=== PATIENT | male | born 1955 | race African-American/Black ===

== ENCOUNTER 2022-05-24 16:09 | Inpatient (IN) ==
[2022-05-24 21:42] VITALS: BMI 35.5
[2022-05-24] MEDS ORDERED: NovoLIN R (or HumuLIN R) SC PRN (21:58)
--- NOTE | 2022-05-24 22:49 | EKG ---
Test Reason : Prior to surgery Blood Pressure : */* mmHG Vent. Rate : 93 BPM Atrial Rate : 93 BPM P-R Int : 174 ms QRS Dur : 76 ms QT Int : 322 ms P-R-T Axes : 34 -28 69 degrees QTc Int : 400 ms Normal sinus rhythm Possible Left atrial enlargement Left ventricular hypertrophy with repolarization abnormality ( R in aVL ) Inferior infarct , age undetermined Abnormal ECG No previous ECGs available Confirmed by Rahul Doss ([id number]) on 05/25/2022 8:08:45 AM Referred By: Confirmed By: Rahul Doss
[2022-05-24 22:51] LABS: BASOPHILS # (AUTO) 0.1 X10^3/uL (0.0-0.1); BASOPHILS % (AUTO) 1.5 % (0.2-1.0); EOSINOPHILS # (AUTO) 0.8 x10^3/uL (0.0-0.2); EOSINOPHILS % (AUTO) 8.2 % (0.9-2.9); HEMATOCRIT 34.9 % (42.0-54.0); HEMOGLOBIN 11.7 g/dL (13.5-18.0); LYMPHOCYTES % (AUTO) 19.7 % (21.0-51.0); MEAN CORPUSCULAR HEMOGLOBIN 29.3 pg (27.0-34.0); MEAN CORPUSCULAR HGB CONC 33.7 g/dL (33.0-35.0); MEAN CORPUSCULAR VOLUME 87.1 fL (80.0-100.0); MEAN PLATELET VOLUME 7.9 fL (7.4-11.0); MONOCYTES # (AUTO) 1.3 x10^3/uL (0.3-0.8); MONOCYTES % (AUTO) 12.9 % (0.0-13.0); NEUTROPHILS # (AUTO) 5.8 x10^3/uL (2.2-4.8); NEUTROPHILS % (AUTO) 57.7 % (42.0-75.0); RED CELL DISTRIBUTION WIDTH 16.2 % (11.6-16.5)
[2022-05-24 22:55] LABS: INR 0.97 (0.8-1.3)
[2022-05-24 23:01] LABS: ALANINE AMINOTRANSFERASE 21 Units/L (12-78); ALKALINE PHOSPHATASE 122 Units/L (46-116); ASPARTATE AMINO TRANSFERASE 18 Units/L (15-37); BLOOD UREA NITROGEN 40 mg/dL (7-18); CALCIUM 8.8 mg/dL (8.5-10.1); CHLORIDE 107 mmol/L (98-107); COR CA(FOR HYPOALB) 9.6 mg/dL (8.5-10.1); SODIUM 143 mmol/L (136-145); TOTAL PROTEIN 7.2 g/dL (6.4-8.2); eGFR NON BLACK RACES 50 (>60)
[2022-05-24] MEDS: LR 1,000 ML IV 1,000 ML IV SCH (23:10)
[2022-05-25] MEDS: PERCOCET TAB 5/325 MG PO PRN ×2 (02:19→20:38)
[2022-05-25] MEDS: NEURONTIN CAP 300 MG PO SCH ×3 (05:56→21:17)
[2022-05-25] MEDS: ATIVAN TAB 1 MG PO SCH ×3 (05:56→21:17)
--- NOTE | 2022-05-25 07:49 | RAD ---
HISTORYPreop left legSTUDYPortable AP chestCOMPARISONReport only September 05, 2019FINDINGSHeart size is upper-normal with clear lungs and pleural spaces.IMPRESSIONThere is no evidence for pneumonia, atelectasis or pulmonary edema.Electronically signed by: JESSY PARKER (May 25, 2022 07:48:58)
--- NOTE | 2022-05-25 10:13 | DR.UPDATE ---
H&P UPDATE Review Yes Any changes to H&P?: No
--- NOTE | 2022-05-25 10:20 | RAD ---
HISTORYLine placementSTUDYAP chestCOMPARISONEarlier todayFINDINGSThere is a new left subclavian line present with the tip in the expected level of the SVC. There is no evidence for post procedural pleural fluid or pneumothorax.IMPRESSIONNew line position as described.Electronically signed by: JESSY PARKER (May 25, 2022 10:18:44)
[2022-05-25] MEDS: LIPITOR TAB 80 MG PO SCH (12:14)
[2022-05-25] MEDS: LYRICA CAP 75 mg PO SCH ×2 (12:14→20:37)
[2022-05-25] MEDS: ASPIRIN EC 81 MG PO SCH (12:14)
[2022-05-25] MEDS: PROTONIX TAB 40 MG PO SCH (12:15)
[2022-05-25] MEDS: TOPROL XL PO SCH (12:15)
--- NOTE | 2022-05-25 13:01 | CT ---
HISTORYSEVERELY ISCHEMIC LOWER EXTREMITIES.STUDYCTA AORTA WITH RUNOFFCOMPARISONNoneTECHNIQUEMultiple CT axial images of the abdomen, pelvis, and lower extremity runoff were obtained before and after using IV contrast. 3D reconstructions utilizing axial MIPS imaging was performed and reviewed. Dose reduction techniques including Automated Exposure Control (AEC) and adjustment of mA and kV were utilized.Stenoses are measured using NASCET criteria.FINDINGSWithout contrast: Atherosclerotic calcification is present in the coronary arteries, aorta, and major branches. No abnormal calcifications are present in the kidneys, ureters, or urinary bladder. No calcified gallstones. No density to suggest intramural hematoma in the vessels.With contrast: Aorta has a normal caliber with no aneurysm, dissection, or focal stenosis. There is irregular noncalcified plaque formation along the inner margins of the aortic lumen. Some of this could be ulceration but none of this extends beyond the normal lumen of the aorta.Celiac axis, superior mesenteric artery and inferior mesenteric artery are patent. There is a single patent artery to each kidney.No significant common iliac or external iliac artery stenosis. Both internal iliac arteries are patent.Right lower extremity: Femoropopliteal artery is patent but there is multifocal disease. There is a severe focal stenosis in the mid superficial femoral artery followed by another severe stenosis at the adductor canal segment. Popliteal artery is patent and gives rise to the posterior tibial artery and peroneal artery branches which extend to the foot. Anterior tibial artery is occluded near the origin.Left lower extremity: Diffuse femoropopliteal artery disease is present. There is a severe stenosis at the adductor canal segment. Popliteal artery is patent with the posterior tibial artery and peroneal artery extending to the foot. The anterior tibial artery is occluded high in the calf but becomes reconstituted in the distal calf.Body: No biliary obstruction. No inflammation around the gallbladder. No hydronephrosis. No bowel obstruction. There are diverticula in the colon. But there is no wall thickening or pericolonic edema to suggest acute diverticulitis. Diffuse bladder wall thickening is nonspecific finding and could be acute or chronic.IMPRESSION1. At least 2 severe stenoses in the right SFA with 2 vessel runoff to the right foot2. At least 1 severe stenosis in the left SFA with 2 vessel runoff to the left foot3. Colonic diverticula4. Nonspecific urinary bladder wall thickeningElectronically signed by: Jitendra Madrigal (May 25, 2022 13:00:12)
--- NOTE | 2022-05-25 17:29 | OR.IMMED ---
IMMEDIATE POST-OP NOTE Immediate Post-Op Note Pre-Op Diagnosis: No IV access Post-Op Diagnosis: same Procedure: Left subclavian triple lumen catheter placement Description of Procedure: see operative summary Surgeon/Wire Coiler: Heather Estimated Blood Loss: minimal Complications: none Progress Notes: May use central line, No pneumothorax on post procedure CXR
--- NOTE | 2022-05-25 17:36 | NOTE.SOAP ---
Soap Note Note for Day of Date of Exam: 05/25/22 Subjective Data Subjective Data: Patient had left subclavian triple lumen catheter placed for IV access and CTA of aorta with runoff performed showing bilateral SFA occluysion ans 2 vessel runoff, left side is worse Objective Data Temperature: 97.8 F Pulse Rate: 87 Respiratory Rate: 26 Blood Pressure: 189/68 O2 Sat by Pulse Oximetry: 99 Objective Data: As above . Foot wounds unchanged Assessment Assessment: B/L limb threatening ischemia Plan Plan: left leg peripheral arterial intervention in AM. Risks and benefits discussed with the patient. He agrees to proceed.
[2022-05-25] MEDS: LR 1,000 ML IV 1,000 ML IV SCH ×3 (19:27→23:40)
[2022-05-25] MEDS ORDERED: LABETALOL HCL IV ONE (20:53)
[2022-05-25] MEDS ORDERED: CATAPRES TAB 0.1 MG PO ONE (20:54)
[2022-05-25] MEDS ORDERED: NORMODYNE INJ 20 MG VIAL ONE (21:10)
[2022-05-25] MEDS: NICOTINE PATCH TD SCH (23:34)
[2022-05-26 05:23] LABS: BLOOD UREA NITROGEN 24 mg/dL (7-18); CALCIUM 8.6 mg/dL (8.5-10.1); CARBON DIOXIDE 26.2 mmol/L (21-32); CHLORIDE 101 mmol/L (98-107); COR NA(FOR HYPERGLY) 138 mmol/L (136-145); CREATININE 1.14 mg/dL (0.70-1.30); SODIUM 136 mmol/L (136-145); eGFR NON BLACK RACES > 60 (>60)
[2022-05-26] MEDS: ATIVAN TAB 1 MG PO SCH ×2 (05:33→13:18)
[2022-05-26] MEDS: NEURONTIN CAP 300 MG PO SCH ×2 (05:33→13:18)
[2022-05-26] MEDS ORDERED: DIPRIVAN VIAL 40 ML ONE (08:54)
[2022-05-26] MEDS ORDERED: VERSED ONE (08:55)
[2022-05-26] MEDS ORDERED: PRECEDEX INJ VIAL IVP ONE (08:55)
[2022-05-26] MEDS ORDERED: FENTANYL VIAL INJ 100 mcg ONE (08:55)
[2022-05-26] MEDS ORDERED: XYLOCAINE 2 % (PLAIN) ONE (09:05)
[2022-05-26] MEDS ORDERED: HEPARIN SODIUM INJ 5000 UNITS ONE (09:13)
[2022-05-26] MEDS ORDERED: ANCEF VIAL 1 GRAM ONE (09:28)
[2022-05-26] MEDS ORDERED: NS 100 ML IV 100 ML ONE (09:29)
[2022-05-26] MEDS ORDERED: NS 1,000 ML IV 1,000 ML ONE (09:29)
[2022-05-26] MEDS ORDERED: HEPARIN SODIUM IN D5W 75,000 UNITS/1,500 ML BAG ONE (10:03)
[2022-05-26] MEDS ORDERED: MARCAINE/EPINEPHRINE ONE (10:03)
[2022-05-26] MEDS ORDERED: KETAMINE HCL ONE ×2 (10:10→10:12)
[2022-05-26] MEDS ORDERED: ZOFRAN INJ 4 MG VIAL ONE (10:21)
[2022-05-26] MEDS ORDERED: ROBINUL ONE (10:21)
[2022-05-26] MEDS ORDERED: PEPCID 20 MG VIAL ONE (10:21)
[2022-05-26] MEDS ORDERED: REGLAN INJ 10 MG VIAL ONE (10:22)
[2022-05-26] MEDS ORDERED: NEO-SYNEPHRINE INJ ONE (10:34)
[2022-05-26] MEDS ORDERED: NS 500 ML IV 500 ML IV ONE (11:29)
--- NOTE | 2022-05-26 12:25 | OR.IMMED ---
IMMEDIATE POST-OP NOTE Immediate Post-Op Note Pre-Op Diagnosis: critical ischemia left leg, RED=0.4, non-healing wound left he el Post-Op Diagnosis: same Procedure: Aortogram, arteriogram left leg, IVUS left leg, atherectomy and drug coated balloon angioplasty left SFA at adductor canal Description of Procedure: see operative summary Surgeon/Spin Tank Tender: Heather Findings: Arteriogram near normal left SFA( CTA said sever disease) IVUS showed > 70 % stenosis of left SFA at adductor canal Estimated Blood Loss: 50 cc Complications: none Progress Notes: To ICU, If tolerated diet will discharge home later today
[2022-05-26] MEDS: TOPROL XL PO SCH (13:17)
[2022-05-26] MEDS: LIPITOR TAB 80 MG PO SCH (13:18)
[2022-05-26] MEDS: NICOTINE PATCH TD SCH (13:18)
[2022-05-26] MEDS: LYRICA CAP 75 mg PO SCH (13:18)
[2022-05-26] MEDS: PROTONIX TAB 40 MG PO SCH (13:18)
[2022-05-26] MEDS: ASPIRIN EC 81 MG PO SCH (13:26)
[2022-05-26] MEDS: LR 1,000 ML IV 1,000 ML IV SCH (13:35)
--- NOTE | 2022-05-26 17:23 | W.DIS.FURT ---
Summary of Discharge Discharge Summary of Date Date of Exam: 05/26/22 Admission Date Date of Admission: 05/24/22 Admission Diagnosis Hospital Course: This 67 year old male presented to my office on May 24 as a referral from Dr. Rodarte for poorly healing wounds to both feet. Ankle brachial indices is 0.4on left and 0.6 on the right. He is diabetic and a heavy smoker consuming over 1 1/2 packs of cigarettes per day as well as 1 pint of alcohol per day. He was admitted at that time for preparation and intervention the left leg. CT angiogram was consistent with left superficial femoral artery stenosis and two vessel runoff of the left leg by the peroneal artery and the posterior tibial . He also has superficial femoral occlusion of the right leg as well. May 26 he underwent atherectomy and drug coated balloon angioplasty of the severe left superficial femoral artery stenosis.. He will be discharged at this time on his usual medications plus Percocet 5 mg tablets 1 PO q 6Hr PRN pain. He will follow up with me in 1 week. At that time we will schedule him to have intervention of the right leg. Vital Signs: Vital Signs (72 hours) 05/25/22 17:36 05/24/22 20:50 05/24/22 21:28 Temperature 97.8 F 98.4 F Pulse Rate 87 Respiratory Rate 26 H Blood Pressure 189/68 128/63 O2 Sat by Pulse Oximetry 99 Oxygen Delivery Method Room Air 05/24/22 21:28 05/24/22 22:00 05/24/22 22:00 Temperature Pulse Rate 93 H 92 H Respiratory Rate 15 13 Blood Pressure 140/65 O2 Sat by Pulse Oximetry 99 96 Oxygen Delivery Method 05/24/22 23:00 05/24/22 23:02 05/25/22 00:00 Temperature 98.5 F Pulse Rate 93 H Respiratory Rate 14 Blood Pressure 128/58 147/75 O2 Sat by Pulse Oximetry 98 Oxygen Delivery Method 05/25/22 00:00 05/25/22 01:00 05/25/22 01:00 Temperature Pulse Rate 90 88 Respiratory Rate 15 10 L Blood Pressure 163/74 O2 Sat by Pulse Oximetry 97 93 L Oxygen Delivery Method 05/25/22 02:04 05/25/22 02:07 05/25/22 02:19 Temperature Pulse Rate 92 H Respiratory Rate 17 14 Blood Pressure 142/65 O2 Sat by Pulse Oximetry 96 Oxygen Delivery Method 05/25/22 03:00 05/25/22 03:00 05/25/22 03:19 Temperature Pulse Rate 89 Respiratory Rate 11 L 11 L Blood Pressure 147/64 O2 Sat by Pulse Oximetry 95 Oxygen Delivery Method 05/25/22 04:00 05/25/22 04:00 05/25/22 05:00 Temperature 98.2 F Pulse Rate 86 Respiratory Rate 19 Blood Pressure 164/70 168/70 O2 Sat by Pulse Oximetry 94 L Oxygen Delivery Method 05/25/22 05:00 05/25/22 06:00 05/25/22 06:00 Temperature Pulse Rate 84 90 Respiratory Rate 18 14 Blood Pressure 180/80 O2 Sat by Pulse Oximetry 93 L 93 L Oxygen Delivery Method 05/25/22 07:00 05/25/22 07:00 05/25/22 08:00 Temperature Pulse Rate 85 93 H Respiratory Rate 14 25 H Blood Pressure O2 Sat by Pulse Oximetry 93 L 97 Oxygen Delivery Method Room Air 05/25/22 09:00 05/25/22 09:16 05/25/22 09:16 Temperature 98.1 F Pulse Rate 92 H 91 H Respiratory Rate 17 11 L Blood Pressure 164/81 O2 Sat by Pulse Oximetry 97 97 Oxygen Delivery Method 05/25/22 10:00 05/25/22 10:00 05/25/22 11:37 Temperature Pulse Rate 88 100 H Respiratory Rate 10 L Blood Pressure 181/86 O2 Sat by Pulse Oximetry 98 97 Oxygen Delivery Method 05/25/22 12:00 05/25/22 12:09 05/25/22 12:09 Temperature 98.0 F Pulse Rate 107 H 106 H Respiratory Rate 20 28 H Blood Pressure 191/98 O2 Sat by Pulse Oximetry 95 97 Oxygen Delivery Method 05/25/22 13:00 05/25/22 13:00 05/25/22 14:00 Temperature Pulse Rate 93 H Respiratory Rate 20 Blood Pressure 195/95 187/85 O2 Sat by Pulse Oximetry 99 Oxygen Delivery Method 05/25/22 14:00 05/25/22 16:00 05/25/22 16:00 Temperature 97.8 F Pulse Rate 78 83 Respiratory Rate 10 L 18 Blood Pressure 189/86 O2 Sat by Pulse Oximetry 95 96 Oxygen Delivery Method 05/25/22 17:00 05/25/22 18:00 05/25/22 19:00 Temperature Pulse Rate 87 80 Respiratory Rate 26 H 13 Blood Pressure O2 Sat by Pulse Oximetry 99 96 Oxygen Delivery Method Room Air 05/25/22 19:18 05/25/22 19:18 05/25/22 20:00 Temperature Pulse Rate 80 80 Respiratory Rate 13 13 Blood Pressure 195/91 O2 Sat by Pulse Oximetry 97 95 Oxygen Delivery Method 05/25/22 20:38 05/25/22 20:45 05/25/22 21:38 Temperature Pulse Rate 84 Respiratory Rate 18 18 20 Blood Pressure 202/100 O2 Sat by Pulse Oximetry 98 Oxygen Delivery Method Room Air 05/25/22 20:27 05/25/22 20:27 05/25/22 21:22 Temperature Pulse Rate 84 85 Respiratory Rate 12 15 Blood Pressure 207/94 O2 Sat by Pulse Oximetry 97 98 Oxygen Delivery Method 05/25/22 21:26 05/25/22 21:26 05/25/22 21:30 Temperature Pulse Rate 93 H 93 H Respiratory Rate 23 17 Blood Pressure 168/84 O2 Sat by Pulse Oximetry 97 95 Oxygen Delivery Method 05/25/22 21:30 05/25/22 21:45 05/25/22 21:45 Temperature Pulse Rate 99 H Respiratory Rate 25 H Blood Pressure 181/92 208/103 O2 Sat by Pulse Oximetry 94 L Oxygen Delivery Method 05/25/22 21:15 05/25/22 22:00 05/25/22 22:00 Temperature Pulse Rate 88 90 Respiratory Rate 20 13 Blood Pressure 202/98 145/70 O2 Sat by Pulse Oximetry 98 91 L Oxygen Delivery Method Room Air 05/25/22 20:00 05/25/22 22:15 05/25/22 22:15 Temperature 98.9 F Pulse Rate 93 H Respiratory Rate 22 Blood Pressure 145/69 O2 Sat by Pulse Oximetry 92 L Oxygen Delivery Method 05/25/22 22:30 05/25/22 22:30 05/25/22 22:45 Temperature Pulse Rate 87 Respiratory Rate 22 Blood Pressure 126/59 132/63 O2 Sat by Pulse Oximetry 91 L Oxygen Delivery Method 05/25/22 22:45 05/25/22 23:00 05/25/22 23:00 Temperature Pulse Rate 89 87 Respiratory Rate 23 17 Blood Pressure 139/62 O2 Sat by Pulse Oximetry 93 L 91 L Oxygen Delivery Method 05/25/22 23:15 05/25/22 23:15 05/26/22 00:00 Temperature 98.5 F Pulse Rate 87 Respiratory Rate 18 Blood Pressure 145/65 O2 Sat by Pulse Oximetry 94 L Oxygen Delivery Method 05/25/22 23:15 05/26/22 00:00 05/26/22 00:00 Temperature Pulse Rate 86 Respiratory Rate 16 Blood Pressure 145/65 139/65 O2 Sat by Pulse Oximetry 92 L Oxygen Delivery Method 05/26/22 01:00 05/26/22 01:00 05/26/22 02:00 Temperature Pulse Rate 86 Respiratory Rate 20 Blood Pressure 134/68 128/58 O2 Sat by Pulse Oximetry 98 Oxygen Delivery Method 05/26/22 02:00 05/26/22 03:00 05/26/22 03:47 Temperature Pulse Rate 83 88 86 Respiratory Rate 14 22 14 Blood Pressure O2 Sat by Pulse Oximetry 95 Oxygen Delivery Method 05/26/22 03:47 05/26/22 04:00 05/26/22 04:00 Temperature Pulse Rate 82 Respiratory Rate 12 Blood Pressure 136/64 146/67 O2 Sat by Pulse Oximetry 95 Oxygen Delivery Method 05/26/22 05:00 05/26/22 05:00 05/26/22 04:00 Temperature 98.6 F Pulse Rate 88 Respiratory Rate 28 H Blood Pressure 154/87 O2 Sat by Pulse Oximetry 93 L Oxygen Delivery Method 05/26/22 06:00 05/26/22 06:00 05/26/22 07:00 Temperature Pulse Rate 85 Respiratory Rate 13 Blood Pressure 143/62 O2 Sat by Pulse Oximetry 94 L Oxygen Delivery Method Room Air 05/26/22 07:00 05/26/22 07:00 05/26/22 08:00 Temperature Pulse Rate 89 Respiratory Rate 13 Blood Pressure 142/63 147/73 O2 Sat by Pulse Oximetry 91 L Oxygen Delivery Method 05/26/22 08:00 05/26/22 09:00 05/26/22 09:00 Temperature 98.5 F Pulse Rate 87 85 Respiratory Rate 14 13 Blood Pressure 135/61 O2 Sat by Pulse Oximetry 93 L 93 L Oxygen Delivery Method 05/26/22 12:09 05/26/22 12:11 05/26/22 12:11 Temperature 98.1 F Pulse Rate 88 87 Respiratory Rate 16 Blood Pressure 128/64 O2 Sat by Pulse Oximetry 98 Oxygen Delivery Method 05/26/22 12:30 05/26/22 12:30 05/26/22 13:00 Temperature Pulse Rate 89 Respiratory Rate 18 Blood Pressure 125/61 129/60 O2 Sat by Pulse Oximetry 98 Oxygen Delivery Method 05/26/22 13:00 05/26/22 13:30 05/26/22 13:30 Temperature Pulse Rate 87 94 H Respiratory Rate 20 16 Blood Pressure 137/75 O2 Sat by Pulse Oximetry 99 94 L Oxygen Delivery Method 05/26/22 14:00 05/26/22 14:00 05/26/22 14:30 Temperature Pulse Rate 86 83 Respiratory Rate 14 15 Blood Pressure 126/63 O2 Sat by Pulse Oximetry 92 L 94 L Oxygen Delivery Method 05/26/22 14:30 05/26/22 15:00 05/26/22 15:00 Temperature Pulse Rate 82 Respiratory Rate 14 Blood Pressure 137/63 128/66 O2 Sat by Pulse Oximetry 93 L Oxygen Delivery Method 05/26/22 15:30 05/26/22 15:30 05/26/22 16:00 Temperature Pulse Rate 83 Respiratory Rate 18 Blood Pressure 141/68 152/72 O2 Sat by Pulse Oximetry 93 L Oxygen Delivery Method 05/26/22 16:00 Temperature Pulse Rate 84 Respiratory Rate 12 Blood Pressure O2 Sat by Pulse Oximetry 94 L Oxygen Delivery Method Labs: Laboratory Last Values WBC 10.0 X10^3/uL (3.6-10.0) 05/24/22 22:39 RBC 4.00 X10^6/uL (4.7-6.0) L 05/24/22 22:39 Hgb 11.7 g/dL (13.5-18.0) L 05/24/22 22:39 Hct 34.9 % (42.0-54.0) L 05/24/22 22:39 MCV 87.1 fL (80.0-100.0) 05/24/22 22:39 MCH 29.3 pg (27.0-34.0) 05/24/22 22:39 MCHC 33.7 g/dL (33.0-35.0) 05/24/22 22:39 RDW 16.2 % (11.6-16.5) 05/24/22 22:39 Plt Count 186 X10^3/uL (150.0-450.0) 05/24/22 22:39 MPV 7.9 fL (7.4-11.0) 05/24/22 22:39 Neut % (Auto) 57.7 % (42.0-75.0) 05/24/22 22:39 Lymph % (Auto) 19.7 % (21.0-51.0) L 05/24/22 22:39 [place] % (Auto) 12.9 % (0.0-13.0) 05/24/22 22:39 Eos % (Auto) 8.2 % (0.9-2.9) H 05/24/22 22:39 Baso % (Auto) 1.5 % (0.2-1.0) H 05/24/22 22:39 Neut # (Auto) 5.8 x10^3/uL (2.2-4.8) H 05/24/22 22:39 Lymph # (Auto) 2.0 X10^3/uL (1.3-2.9) 05/24/22 22:39 [place] # (Auto) 1.3 x10^3/uL (0.3-0.8) H 05/24/22 22:39 Eos # (Auto) 0.8 x10^3/uL (0.0-0.2) H 05/24/22 22:39 Baso # (Auto) 0.1 X10^3/uL (0.0-0.1) 05/24/22 22:39 Absolute Nucleated RBC 0.0 /100WBC 05/24/22 22:39 PT 12.7 SECONDS (11.8-14.3) 05/24/22 22:39 INR Target Range - 05/24/22 22:39 INR 0.97 (0.8-1.3) 05/24/22 22:39 APTT 25.6 SECONDS (22.9-36.5) 05/24/22 22:39 PTT Comment - 05/24/22 22:39 Sodium 136 mmol/L (136-145) 05/26/22 04:05 Corrected Sodium 138 mmol/L (136-145) 05/26/22 04:05 Potassium 4.7 mmol/L (3.5-5.1) 05/26/22 04:05 Chloride 101 mmol/L (98-107) 05/26/22 04:05 Carbon Dioxide 26.2 mmol/L (21-32) 05/26/22 04:05 BUN 24 mg/dL (7-18) H 05/26/22 04:05 Creatinine 1.14 mg/dL (0.70-1.30) 05/26/22 04:05 Est GFR (MDRD) Af Amer > 60 (>60) 05/26/22 04:05 Est GFR (MDRD) Non-Af > 60 (>60) 05/26/22 04:05 Glucose 198 mg/dL (65-99) H 05/26/22 04:05 POC Glucose (mg/dL) 151 mg/dL (65-99) H 05/26/22 16:50 Calcium 8.6 mg/dL (8.5-10.1) 05/26/22 04:05 Corrected Calcium 9.6 mg/dL (8.5-10.1) 05/24/22 22:39 Total Bilirubin 0.20 mg/dL (0.2-1.0) 05/24/22 22:39 AST 18 Units/L (15-37) 05/24/22 22:39 ALT 21 Units/L (12-78) 05/24/22 22:39 Alkaline Phosphatase 122 Units/L (46-116) H 05/24/22 22:39 Total Protein 7.2 g/dL (6.4-8.2) 05/24/22 22:39 Albumin 3.0 g/dL (3.4-5.0) L 05/24/22 22:39 Globulin 4.2 g/dL (2.5-4.5) 05/24/22 22:39 Albumin/Globulin Ratio 0.7 Ratio (1.1-2.1) L 05/24/22 22:39 Reason For Visit: ISCHEMIC LEFT LEG EITH TISSUE LOSS Discharge Date Discharge Date: 05/26/22 Discharge Diagnosis All Active Problems (Updated 05/24/22 @ 21:57 by Hernan Romero) Chronic ischemic heart disease, unspecified (Acute) Essential (primary) hypertension (Acute) Diabetes 1.5, managed as type 1 (Acute) GE reflux (Acute) Neuropathy (Acute) Atherosclerosis of [place] arteries of extremities with rest pain, right leg (Acute) Atherosclerosis of [place] arteries of extremities with rest pain, left leg (Acute) Plan of Treatment: Continue with present treatment and follow up plan. Pt is to keep follow up appointment as instructed and take medications as ordered. Discharge Medications Discharge Medications: Penicillins Adverse Reaction (Intermediate, Verified 05/24/22 21:46) ANAPHALEXIS REACTION CONTINUE taking the following medications aspirin 81 mg tablet,delayed release 81 mg PO QDAY 05/24/22 [History] clopidogrel 75 mg tablet 1 tab PO QDAY 05/24/22 [History] clotrimazole-betamethasone 1 %-0.05 % topical cream 1 applic topical BID 05/24/22 [History] gabapentin 300 mg capsule 1 cap PO TID 05/24/22 [History] hydroxyzine HCl 25 mg tablet 1 tab PO Q8H PRN itch 05/24/22 [History] insulin aspart U-100 100 unit/mL (3 mL) subcutaneous pen (Novolog FlexPen U-100 Insulin aspart) See Rx Instructions .Route .COMPLEX 05/24/22 [History] insulin glargine U-300 conc 300 unit/mL (1.5 mL) subcutaneous pen (Toujeo SoloStar U-300 Insulin) 30 ea subcut BID 05/24/22 [History] lisinopril 10 mg tablet 1 tab PO QDAY 05/24/22 [History] mupirocin 2 % topical ointment 1 applic topical BID 05/24/22 [History] pregabalin 100 mg capsule 1 cap PO BID 05/24/22 [History] Discharge Plan Discharge Plan Hospital Course: This 67 year old male presented to my office on May 24 as a referral from Dr. Rodarte for poorly healing wounds to both feet. Ankle brachial indices is 0.4on left and 0.6 on the right. He is diabetic and a heavy smoker consuming over 1 1/2 packs of cigarettes per day as well as 1 pint of alcohol per day. He was admitted at that time for preparation and intervention the left leg. CT angiogram was consistent with left superficial femoral artery stenosis and two vessel runoff of the left leg by the peroneal artery and the posterior tibial . He also has superficial femoral occlusion of the right leg as well. May 26 he underwent atherectomy and drug coated balloon angioplasty of the severe left superficial femoral artery stenosis.. He will be discharged at this time on his usual medications plus Percocet 5 mg tablets 1 PO q 6Hr PRN pain. He will follow up with me in 1 week. At that time we will schedule him to have intervention of the right leg. Patient Disposition: 01 HOME, SELF-CARE Condition: Stable Health Concerns: Post Hospitalization: new medications and changes needed to prevent readmission or further decline. Pt educated and given instructions on all concerns. Care Plan Goals: Problem: Altered Tissue Perfusion Goal: Adequate Tissue Perfusion Instructions: Follow provided instructions. Follow up with primary physician as directed. Contact primary care physician or report to the closest Emergency Room if condition worsens. Plan of Treatment: Continue with present treatment and follow up plan. Pt is to keep follow up appointment as instructed and take medications as ordered. Prescriptions: New oxycodone-acetaminophen [Percocet] 5-325 mg tablet 1 tab PO Q6H MDD 4 PRNQty: 30 0RF Continued clopidogrel 75 mg tablet 1 tab PO QDAY clotrimazole-betamethasone 1-0.05 % cream 1 applic TOPICAL BID lisinopril 10 mg tablet 1 tab PO QDAY gabapentin 300 mg capsule 1 cap PO TID hydroxyzine HCl 25 mg tablet 1 tab PO Q8H PRN (Reason: itch) mupirocin 2 % ointment 1 applic TOPICAL BID insulin aspart U-100 [Novolog FlexPen U-100 Insulin] 100 unit/mL (3 mL) Insulin Pen See Rx Instructions .ROUTE .COMPLEX Rx Instructions: Take 17 units Sub-Q daily in the morning. Take 21 units Sub-Q daily at lunch. Take 27 units Sub-Q daily at night. pregabalin 100 mg capsule 1 cap PO BID Toujeo SoloStar U-300 Insulin 300 unit/mL (1.5 mL) insulin pen 30 ea SUBCUT BID Label Comments: 50 UNITS SUBCUTANEOUS ONCE A DAY 90 DAYS 84 aspirin 81 mg Tablet,Delayed Release (Dr/Ec) 81 mg PO QDAY Follow ups/Referrals Follow ups/Referrals: Hernan Romero [Primary Care Provider] - 05/31/22 3:30 pm Instructions Instructions: Angiogram, Atherosclerosis, Managing Your Hypertension, Blood Glucose Monitoring, Adult Stand Alone Forms: Excuse From Work or School
[2022-05-26 18:10] VITALS: BP 176/86
--- NOTE | 2022-05-28 19:26 | DR.OPNOTE ---
OP NOTE Pre-Op Diagnosis: ischemic left leg, lack of IV access. Post-Op Diagnosis: same Procedure Date Date Of Procedure: 05/24/22 Procedure: PROCEDURE: LEFT SUBCLAVIAN TRIPLE LUMEN CATHETER PLACEMENT NARRATIVE : The patient was placed in the supine position and Trendelenburg and the left neck and chest prepped and draped in sterile fashion. The left subclavian area was infiltrated under the left clavicle. 16 gauge needle used to puncture the left subclavian vein and 0.035 inch guide wire placed . Incision made over the wire with a # 11 knife and dilator placed over the wire into the vein. Dilator removed and catheter placed over the wire into the left subclavian vein and the the wire removed . All ports aspirated of blood and flushed with heparinized saline. Catheter secured with silk sutures and dressing applied. CXR showed good placement of the of the catheter and there was no pneumothorax. Type of Anesthesia: Local (1 % Xylocaine) Anesthesia Comment: local Findings: as above EBL: minimal Complications:: none, post procedures Disposition/Condition: Pt. tolerated procedure. No Pneumothorax on post procedure CXR.
--- NOTE | 2022-05-29 09:32 | DR.OPNOTE ---
OP NOTE Pre-Op Diagnosis: critical limb ischemia left leg, RED=0.4, left heel wound Post-Op Diagnosis: same Procedure Date Date Of Procedure: 05/26/22 Procedure: PROCEDURE: diagnostic aortogram, arteriogram left leg, IVUS of left superficial femoral artery, atherectomy and drug coated balloon angioplasty of the left superficial femoral artery at the adductor canal. NARRATIVE: The patient was taken to the operative suite and placed in the supine position. The entire left leg and the right groin were prepped and draped in sterile fashion. Patient was given intravenous sedation which was supervised by myself. Time out for the procedure obtained . Ultrasound used to identify the right femoral artery and the skin overlying it infiltrated with 0.5% Marcaine. Ultrasound used to guide puncture of the right femoral artery and a 0.012 inch guide wire placed. Incision made over the guide wire at the skin edge with a number 11 knife and a micro sheath placed over the wire into the right femoral artery . Small wire exchanged for a 0.035 inch Advantage guide wire and the micro sheath exchanged for a five Fr sheath . Patient was given 5,000 units of intravenous heparin. Omni catheter placed over the guide wire into the aorta and diagnostic aortogram performed and the aorta showed no obstruction and the iliac arteries were normal . Omni catheter used to steer the guide wire down the left iliac artery and the Omni catheter exchanged for a [place] catheter. Sequential arteriogram carried out of the left leg showing questionable obstruction of the superficial femoral artery at the adductor canal . This had been suggested by the CT scan. Runoff showed a patent posterior tibial and peroneal artery The anterior tibial artery was obstructed after it's takeoff. Guidewire and [place] catheter placed all the way down into the peroneal artery as selective catheterization. 5 fr sheath in the right groin was exchanged for a 7 Fr destination sheath and parked in the proximal left femoral artery. The 0.035 inch wide was a replaced for 0.014 inch guide wire .Ultrasound probe placed over this and showed greater than 70% stenosis of the distal superficial femoral artery. Ultrasound device removed and we placed the Jet St ream atherectomy device and performed atherectomy of the the distal left superficial femoral artery. We then balloon dilated the distal superficial femoral artery with a 6 mmx 100 mm [employer] [place] balloon. Post procedure arteriogram showed excellent results . Wires and devices were removed. The destination sheath was pulled back into the aorta and a 0.035 inch wire placed . The destination sheath was exchanged for an Angio seal device which was used to close the puncture of the right common femoral artery. Dressing applied and patient taken to same day surgery in good condition . Type of Anesthesia: Local (0.5% Marcaine ) Anesthesia Comment: plus MAC Findings: IVUS demonstrated > 70 % stenosis of the left superficial femoral artery at the adductor canal Type of Fluids Used:: Lactated Ringers Total Amount of Fluid Infused:: 700 cc Urine output: 150 cc EBL: 50 cc Complications:: none Needle/Sponge Count:: correct Disposition/Condition: Pt. tolerated procedure without difficulty. Patient taken to [facility] in stable condition.
== END 2022-05-26 18:15 | disposition home or self-care (01) | DRG 272 ==
LOC: ICU 20:26
PROVIDERS: ADMIT Surgery; ATTEND Surgery
DX: I10 Essential (primary) hypertension; I70.222 Atherosclerosis of native arteries of extremities with rest pain, left leg; F10.90 Alcohol use, unspecified, uncomplicated; I25.10 Atherosclerotic heart disease of native coronary artery without angina pectoris; Z72.0 Tobacco use; K21.9 Gastro-esophageal reflux disease without esophagitis; E11.65 Type 2 diabetes mellitus with hyperglycemia

== ENCOUNTER 2022-08-17 07:30 | Observation (INO) ==
[2022-08-17] MEDS ORDERED: ANCEF VIAL 1 GRAM ONE (12:28)
[2022-08-17] MEDS ORDERED: NS 100 ML IV 100 ML ONE (12:29)
[2022-08-17] MEDS ORDERED: NS 1,000 ML IV 1,000 ML ONE (12:29)
[2022-08-17] MEDS ORDERED: BETADINE SOLN ONE (12:33)
[2022-08-17] MEDS ORDERED: MARCAINE 0.25% INJ ONE (12:33)
[2022-08-17] MEDS ORDERED: DUONEB 0.5 MG/3 MG (3 mL) NEB ONE (12:38)
[2022-08-17] MEDS ORDERED: FENTANYL VIAL INJ 250 mcg ONE (12:45)
[2022-08-17] MEDS ORDERED: DIPRIVAN VIAL 20 ML ONE (12:45)
[2022-08-17] MEDS ORDERED: VERSED ONE (12:47)
[2022-08-17 13:06] VITALS: BMI 34.2
[2022-08-17] MEDS ORDERED: ULTANE GAS IN ONE (13:25)
[2022-08-17] MEDS ORDERED: ProvayBLUE 0.5% ONE (13:49)
[2022-08-17] MEDS ORDERED: ZOFRAN INJ 4 MG VIAL ONE (13:51)
[2022-08-17] MEDS ORDERED: PEPCID 20 MG VIAL ONE (13:51)
[2022-08-17] MEDS ORDERED: PRECEDEX INJ VIAL IVP ONE (14:51)
[2022-08-17] MEDS ORDERED: ZOFRAN INJ 4 MG VIAL IVP PRN ×2 (15:47→15:55)
[2022-08-17] MEDS ORDERED: TYLENOL 325 MG TAB PO PRN (15:47)
[2022-08-17] MEDS: DILAUDID INJ IVP PRN ×2 (15:50→16:09)
[2022-08-17] MEDS ORDERED: ATARAX TAB 25 MG PO PRN (15:52)
[2022-08-17] MEDS ORDERED: BENADRYL INJ 50 MG VIAL IVP PRN (15:55)
[2022-08-17] MEDS ORDERED: BARHEMSYS INJ IVP PRN (15:55)
[2022-08-17] MEDS ORDERED: REGLAN INJ 10 MG VIAL IVP PRN (15:55)
[2022-08-17] MEDS ORDERED: PATIENT'S HOME MEDICATION (Insulin Aspart U-100 [Novolog Flexpen U-100 Insulin] 100 unit/m SCH (16:00)
--- NOTE | 2022-08-17 16:00 | DR.OB ---
OB QUICK NOTE Assessment/Plan (1) Contracture, right ankle: Assessment/Plan: 67 M S/P ex fix right foot with wound debridements bilateral P: admit for 23 h obs. PT to see in AM. patient ok for TTWB on frame on right with assistive device. if patient ok to go home with home health then may D/C tomorrow. if PT determines needs skilled rehab for a few weeks then may need to stay for placement. will see in AM.
[2022-08-17] MEDS ORDERED: VALIUM PO SCH (21:00)
[2022-08-17] MEDS: NEURONTIN CAP 300 MG PO SCH (21:14)
[2022-08-17] MEDS: COLACE CAP 100 MG PO SCH (21:14)
[2022-08-17] MEDS: NORCO 5/325 MG TAB PO PRN (21:15)
[2022-08-17] MEDS: LOPRESSOR TAB 25 MG PO SCH (21:17)
[2022-08-17] MEDS: SNACK - Diabetic Appropriate PO SCH (21:19)
--- NOTE | 2022-08-17 21:48 | DR.H&P ---
H&P History & Physical for Day of: H&P Date: 08/17/22 Chief Complaint Chief Complaint: Debridement of bilateral foot wounds. Allergies Allergies Allergy/AdvReac Type Severity Reaction Status Date / Time Penicillins AdvReac Intermediate ANAPHALEXIS Verified 06/27/22 07:32 REACTION History of Present Illness History of Present Illness: This is a pleasant 67-year-old man who underwent wound debridement by Dr. Dimas Rodarte for chronic wounds to his feet bilaterally. He is a known insulin-dependent diabetic with hypertension, GERD, diabetic peripheral neuropathy and hyperlipidemia. Past Medical History Past Medical History: Arthritis, Diabetes, GERD and Hypertension Additional Medical History: Diabetic peripheral neuropathy Past Surgical History Surgical History: Angioplasty/Stents and Other Family History Family Medical History: Diabetes Mellitus and Hypertension Social History Does patient currently use any type of tobacco product: Yes Have you used tobacco products in the last 12 months: Yes Type of Tobacco Use: Cigarettes How many years tobacco product used: 20 Does any household member use tobacco: No Alcohol Use: DAILY Drug Use: None Medications Home Medications: Home Medications Medication Instructions Recorded Confirmed Type aspirin 81 mg tablet,delayed 81 mg PO QDAY 05/24/22 08/17/22 History release clopidogrel 75 mg tablet 1 tab PO QDAY 05/24/22 08/17/22 History clotrimazole-betamethasone 1 1 applic topical BID PRN 05/24/22 08/17/22 History %-0.05 % topical cream gabapentin 300 mg capsule 1 cap PO BID 05/24/22 08/17/22 History hydroxyzine HCl 25 mg tablet 1 tab PO Q8H PRN itch 05/24/22 08/17/22 History insulin aspart U-100 100 unit/mL See Rx Instructions .Route .COMPLEX 05/24/22 08/17/22 History (3 mL) subcutaneous pen (Novolog FlexPen U-100 Insulin aspart) insulin glargine U-300 conc 300 30 ea subcut BID 05/24/22 08/17/22 History unit/mL (1.5 mL) subcutaneous pen (Toujeo SoloStar U-300 Insulin) lisinopril 10 mg tablet 0.5 tab PO QDAY 05/24/22 08/17/22 History mupirocin 2 % topical ointment 1 applic topical BID PRN 05/24/22 08/17/22 History pregabalin 100 mg capsule 1 cap PO BID 05/24/22 08/17/22 History pantoprazole 40 mg tablet,delayed 1 tab PO QDAY 08/16/22 08/16/22 History release atorvastatin 80 mg tablet 80 mg PO QDAY 08/17/22 08/17/22 History metoprolol tartrate 25 mg tablet 25 mg PO QDAY 08/17/22 08/17/22 History Labs Labs: 08/17/22 13:59 Foot - Right Wound Gram Stain - Final 08/17/22 13:59 Foot - Left Wound Gram Stain - Final Laboratory POC Glucose (mg/dL) 166 mg/dL (65-99) H 08/17/22 20:37 Review of Systems Constitutional: No Symptoms Reported Eyes: No Symptoms Reported ENT: No Symptoms Reported Respiratory: No Symptoms Reported Cardiovascular: No Symptoms Reported Gastrointestinal: No Symptoms Reported Genitourinary: No Symptoms Reported Musculoskeletal: No Symptoms Reported Skin: No Symptoms Reported Neurological: No Symptoms Reported Physical Exam Vital Signs: Vital Signs Temperature 97.0 F Temperature 97.0 F Temperature 97.0 F Temperature 97.0 F Temperature 97.0 F Temperature 98.0 F Pulse Rate [Bilateral Radial] 98 Pulse Rate [Bilateral Radial] 97 Pulse Rate [Bilateral Radial] 94 Pulse Rate [Bilateral Radial] 93 Pulse Rate [Bilateral Radial] 97 Pulse Rate 99 Pulse Rate 95 Pulse Rate 93 Pulse Rate 93 Pulse Rate 92 Pulse Rate 94 Pulse Rate 92 Pulse Rate 93 Pulse Rate 93 Respiratory Rate 20 Respiratory Rate 20 Respiratory Rate 20 Respiratory Rate 20 Respiratory Rate 20 Respiratory Rate 20 Respiratory Rate 18 Respiratory Rate 18 Respiratory Rate 17 Respiratory Rate 17 Respiratory Rate 17 Respiratory Rate 17 Respiratory Rate 17 Respiratory Rate 17 Respiratory Rate 17 Blood Pressure [Left Arm] 148/69 Blood Pressure [Left Arm] 152/71 Blood Pressure [Left Arm] 105/49 Blood Pressure [Left Arm] 111/59 Blood Pressure [Left Arm] 124/60 Blood Pressure 112/57 Blood Pressure 117/57 Blood Pressure 131/58 Blood Pressure 116/55 Blood Pressure 128/51 Blood Pressure 129/54 Blood Pressure 145/68 O2 Sat by Pulse Oximetry 96 O2 Sat by Pulse Oximetry 95 O2 Sat by Pulse Oximetry 96 O2 Sat by Pulse Oximetry 96 O2 Sat by Pulse Oximetry 96 O2 Sat by Pulse Oximetry 97 O2 Sat by Pulse Oximetry 96 O2 Sat by Pulse Oximetry 99 O2 Sat by Pulse Oximetry 99 O2 Sat by Pulse Oximetry 99 O2 Sat by Pulse Oximetry 97 O2 Sat by Pulse Oximetry 97 O2 Sat by Pulse Oximetry 95 O2 Sat by Pulse Oximetry 96 Oriented: Unable to test (Patient is still groggy after coming out of surgery.) Eyes: Normal Nose: Normal Respiratory: Clear Throughout Cardiovascular: Normal Auscultation: Bowel Sounds: Normal Palpation: Normal Tenderness: Normal Skin: Normal Musculoskeletal: Normal Affect: Quiet Assessment/Plan (1) Contracture, right ankle: Status: Acute Plan: Treatment per podiatry. (2) Essential (primary) hypertension: Status: Acute Plan: Resume lisinopril 10 mg 1/2 tablet daily and resume metoprolol tartrate 25 mg twice daily. I see that it was written down in his chart as once a day but it is a twice daily medication. (3) Diabetes 1.5, managed as type 1: Status: Acute Plan: Sliding scale regular insulin per protocol. (4) Neuropathy: Status: Acute Plan: Resume pregabalin. (5) GE reflux: Status: Acute Plan: Resume pantoprazole. (6) Alcohol use disorder: Status: Acute Plan: According to the patient's he drinks approximately 1/5 of vodka daily. Because of that I will go ahead and give him Valium 10 mg at bedtime tonight. This should help keep him from having any DTs through the night and tomorrow morning. As long as he is doing well tomorrow morning we will plan on discharging home. Review H&P Reviewed: Yes Patient was examined?: Yes
[2022-08-18] MEDS: DILAUDID INJ IVP PRN (00:07)
[2022-08-18 06:01] LABS: BASOPHILS # (AUTO) 0.1 X10^3/uL (0.0-0.1); BASOPHILS % (AUTO) 0.7 % (0.2-1.0); EOSINOPHILS # (AUTO) 0.2 x10^3/uL (0.0-0.2); EOSINOPHILS % (AUTO) 1.9 % (0.9-2.9); HEMOGLOBIN 10.8 g/dL (13.5-18.0); MEAN CORPUSCULAR HEMOGLOBIN 32.2 pg (27.0-34.0); MEAN CORPUSCULAR HGB CONC 33.7 g/dL (33.0-35.0); MEAN CORPUSCULAR VOLUME 95.7 fL (80.0-100.0); MEAN PLATELET VOLUME 7.6 fL (7.4-11.0); MONOCYTES # (AUTO) 1.2 x10^3/uL (0.3-0.8); NEUTROPHILS # (AUTO) 6.6 x10^3/uL (2.2-4.8); NEUTROPHILS % (AUTO) 73.4 % (42.0-75.0); PLATELET COUNT 158 X10^3/uL (150.0-450.0); RED BLOOD COUNT 3.35 X10^6/uL (4.7-6.0); RED CELL DISTRIBUTION WIDTH 16.4 % (11.6-16.5)
[2022-08-18 06:07] LABS: BLOOD UREA NITROGEN 20 mg/dL (7-18); CALCIUM 7.2 mg/dL (8.5-10.1); CHLORIDE 104 mmol/L (98-107); COR NA(FOR HYPERGLY) 141 mmol/L (136-145); CREATININE 1.41 mg/dL (0.70-1.30); GLUCOSE 148 mg/dL (65-99); POTASSIUM 5.6 mmol/L (3.5-5.1); SODIUM 140 mmol/L (136-145); eGFR NON BLACK RACES 54 (>60)
--- NOTE | 2022-08-18 08:10 | NOTE.SOAP ---
Soap Note Note for Day of Date of Exam: 08/18/22 Subjective Data Subjective Data: POD1: Patient seen this am, no n/v/d/f/c/sob, pain tolerated. Would like to go home. Objective Data Objective Data: Serous fluid seeping from dressings. Pin sites are clean with no sign of infection. NVSI Dressing intact to bilateral heel wounds Assessment Assessment: S/P Bilateral heel wound debridement with graft application, Application of Multiplanar External Fixator, Right lower extremity (DOS: 08/18/22) Plan Plan: Dressing changed Patient okay for DC if PT feels safe for transfer Please dispense dressings and scripts in chart if DC
[2022-08-18] MEDS ORDERED: KAYEXALATE SUSP PO ONE (08:45)
[2022-08-18] MEDS ORDERED: LOPRESSOR TAB 25 MG PO SCH (09:00)
[2022-08-18] MEDS: LOPRESSOR TAB 25 MG PO SCH ×2 (09:38→20:43)
[2022-08-18] MEDS: LIPITOR TAB 80 MG PO SCH (09:38)
[2022-08-18] MEDS: ASPIRIN EC 81 MG PO SCH (09:38)
[2022-08-18] MEDS: LOVENOX INJ 40 MG SYR SC SCH (09:38)
[2022-08-18] MEDS: NEURONTIN CAP 300 MG PO SCH ×2 (09:38→21:45)
[2022-08-18] MEDS: ZESTRIL TAB 10 MG PO SCH (09:39)
[2022-08-18] MEDS: PROTONIX TAB 40 MG PO SCH (09:39)
[2022-08-18] MEDS: PLAVIX PO SCH (09:39)
[2022-08-18] MEDS: NORCO 5/325 MG TAB PO PRN ×2 (11:38→20:44)
[2022-08-18] MEDS: NovoLIN R (or HumuLIN R) SUBCUT PRN ×3 (13:01→22:00)
[2022-08-18] MEDS: VALIUM PO SCH ×2 (16:28→21:45)
[2022-08-18] MEDS: SNACK - Diabetic Appropriate PO SCH (20:30)
[2022-08-18] MEDS: COLACE CAP 100 MG PO SCH (20:43)
--- NOTE | 2022-08-18 21:40 | PCM.PROG ---
Progress Note Progress Note for Day of Date of Exam: 08/18/22 Subjective Subjective: The patient is alert and awake this morning. He had no significant complications yesterday afternoon or through the night. This morning however his potassium was elevated at 5.6 however he is not receiving any supplemental potassium and is not on any medication that should increase his potassium levels. We decided go ahead and give him some p.o. Kayexalate and repeat his potassium later in the day. We did that and his potassium has come down to 4.8 and he has become more agitated this afternoon according to the nurses. I was informed that he is a heavy drinker and drinks approximately 1/5 of vodka daily. Because of this we decided to go ahead and put him on Valium 10 mg every 8 hours to help him stay calm and prevent him from having any early DTs. We want to make sure his potassium stays down again tomorrow so we will keep him an extra night and if he is doing well tomorrow morning we will plan on discharging home. Past Medical Family Social History Allergies: Allergies Penicillins Adverse Reaction (Intermediate, Verified 06/27/22 07:32) ANAPHALEXIS REACTION Review of Systems ROS: Changes notes (describe) (Agitation) Vital Signs and I&O's Vital Signs: Vital Signs Temperature 97.9 F Pulse Rate [Bilateral Radial] 86 Respiratory Rate 18 Respiratory Rate 20 Blood Pressure [Right Arm] 116/54 O2 Sat by Pulse Oximetry 95 Intake and Output: Intake & Output 08/16/22 08/17/22 08/18/22 08/19/22 11:59 11:59 11:59 11:59 Intake Total 2110 / 2110 1080 / 1080 Output Total 1325 / 1325 Balance 785 / 785 1080 / 1080 Physical Exam Oriented: Unable to test (Patient is still groggy after coming out of surgery.) Eyes: Normal Nose: Normal Respiratory: Normal Cardiovascular: Normal Auscultation: Bowel Sounds: Normal Tenderness: Normal Skin: Normal Musculoskeletal: Normal Mood Description: Calm Affect: Quiet Speech Pattern: Clear and Appropriate Laboratory and Diagnostics Result Diagrams: 08/18/22 05:39 08/18/22 15:17 Labs: 08/17/22 13:59 Foot - Right Wound Gram Stain - Final 08/17/22 13:59 Foot - Right Wound Culture - Preliminary 08/17/22 13:59 Foot - Left Wound Gram Stain - Final 08/17/22 13:59 Foot - Left Wound Culture - Preliminary Laboratory WBC 9.0 X10^3/uL (3.6-10.0) 08/18/22 05:39 RBC 3.35 X10^6/uL (4.7-6.0) L 08/18/22 05:39 Hgb 10.8 g/dL (13.5-18.0) L 08/18/22 05:39 Hct 32.0 % (42.0-54.0) L 08/18/22 05:39 MCV 95.7 fL (80.0-100.0) 08/18/22 05:39 MCH 32.2 pg (27.0-34.0) 08/18/22 05:39 MCHC 33.7 g/dL (33.0-35.0) 08/18/22 05:39 RDW 16.4 % (11.6-16.5) 08/18/22 05:39 Plt Count 158 X10^3/uL (150.0-450.0) 08/18/22 05:39 MPV 7.6 fL (7.4-11.0) 08/18/22 05:39 Neut % (Auto) 73.4 % (42.0-75.0) 08/18/22 05:39 Lymph % (Auto) 11.0 % (21.0-51.0) L 08/18/22 05:39 Ward % (Auto) 13.0 % (0.0-13.0) 08/18/22 05:39 Eos % (Auto) 1.9 % (0.9-2.9) 08/18/22 05:39 Baso % (Auto) 0.7 % (0.2-1.0) 08/18/22 05:39 Neut # (Auto) 6.6 x10^3/uL (2.2-4.8) H 08/18/22 05:39 Lymph # (Auto) 1.0 X10^3/uL (1.3-2.9) L 08/18/22 05:39 Ward # (Auto) 1.2 x10^3/uL (0.3-0.8) H 08/18/22 05:39 Eos # (Auto) 0.2 x10^3/uL (0.0-0.2) 08/18/22 05:39 Baso # (Auto) 0.1 X10^3/uL (0.0-0.1) 08/18/22 05:39 Absolute Nucleated RBC 0.2 /100WBC 08/18/22 05:39 Sodium 140 mmol/L (136-145) 08/18/22 05:39 Corrected Sodium 141 mmol/L (136-145) 08/18/22 05:39 Potassium 4.8 mmol/L (3.5-5.1) 08/18/22 15:17 Chloride 104 mmol/L (98-107) 08/18/22 05:39 Carbon Dioxide 27.0 mmol/L (21-32) 08/18/22 05:39 BUN 20 mg/dL (7-18) H 08/18/22 05:39 Creatinine 1.41 mg/dL (0.70-1.30) H 08/18/22 05:39 Est GFR (MDRD) Af Amer > 60 (>60) 08/18/22 05:39 Est GFR (MDRD) Non-Af 54 (>60) L 08/18/22 05:39 Glucose 148 mg/dL (65-99) H 08/18/22 05:39 POC Glucose (mg/dL) 248 mg/dL (65-99) H 08/18/22 21:04 Calcium 7.2 mg/dL (8.5-10.1) L 08/18/22 05:39 Plan (1) Contracture, right ankle: Status: Acute Plan: Treatment per podiatry. (2) Essential (primary) hypertension: Status: Acute Plan: Resume lisinopril 10 mg 1/2 tablet daily and resume metoprolol tartrate 25 mg twice daily. I see that it was written down in his chart as once a day but it is a twice daily medication. (3) Diabetes 1.5, managed as type 1: Status: Acute Plan: Sliding scale regular insulin per protocol. (4) Neuropathy: Status: Acute Plan: Resume pregabalin. (5) GE reflux: Status: Acute Plan: Resume pantoprazole. (6) Alcohol use disorder: Status: Acute Plan: According to the patient's he drinks approximately 1/5 of vodka daily. Because of that I will go ahead and give him Valium 10 mg at bedtime tonight. This should help keep him from having any DTs through the night and tomorrow morning. As long as he is doing well tomorrow morning we will plan on discharging home. (7) Agitation: Status: Acute Plan: Add Valium 10 mg p.o. every 8 hours. (8) Hyperkalemia: Status: Acute Plan: Kayexalate 30 g p.o. x1. Repeat potassium 2 hours after bowel movement. Repeat CMP tomorrow morning.
[2022-08-19] MEDS: VALIUM PO SCH ×3 (05:40→21:47)
[2022-08-19] MEDS: NovoLIN R (or HumuLIN R) SUBCUT PRN ×3 (06:15→17:22)
[2022-08-19 06:32] LABS: BASOPHILS % (AUTO) 0.5 % (0.2-1.0); EOSINOPHILS # (AUTO) 0.3 x10^3/uL (0.0-0.2); EOSINOPHILS % (AUTO) 4.7 % (0.9-2.9); HEMATOCRIT 28.1 % (42.0-54.0); HEMOGLOBIN 9.2 g/dL (13.5-18.0); LYMPHOCYTES # (AUTO) 1.7 X10^3/uL (1.3-2.9); LYMPHOCYTES % (AUTO) 24.1 % (21.0-51.0); MEAN CORPUSCULAR HEMOGLOBIN 31.9 pg (27.0-34.0); MEAN CORPUSCULAR HGB CONC 32.9 g/dL (33.0-35.0); MEAN CORPUSCULAR VOLUME 97.1 fL (80.0-100.0); MEAN PLATELET VOLUME 7.8 fL (7.4-11.0); MONOCYTES # (AUTO) 1.3 x10^3/uL (0.3-0.8); MONOCYTES % (AUTO) 18.7 % (0.0-13.0); NEUTROPHILS # (AUTO) 3.6 x10^3/uL (2.2-4.8); PLATELET COUNT 134 X10^3/uL (150.0-450.0); RED BLOOD COUNT 2.89 X10^6/uL (4.7-6.0); RED CELL DISTRIBUTION WIDTH 16.5 % (11.6-16.5); WHITE BLOOD COUNT 6.9 X10^3/uL (3.6-10.0)
[2022-08-19 07:44] LABS: METAMYELOCYTES % 2; MYELOCYTES % 1; PLATELET MORPHOLOGY COMMENT NORMAL (NORMAL)
[2022-08-19] MEDS: NICOTINE PATCH TD SCH (09:12)
[2022-08-19] MEDS: PROTONIX TAB 40 MG PO SCH (09:14)
[2022-08-19] MEDS: ASPIRIN EC 81 MG PO SCH (09:14)
[2022-08-19] MEDS: ZESTRIL TAB 10 MG PO SCH (09:14)
[2022-08-19] MEDS: LIPITOR TAB 80 MG PO SCH (09:14)
[2022-08-19] MEDS: PLAVIX PO SCH (09:14)
[2022-08-19] MEDS: NORCO 5/325 MG TAB PO PRN (09:15)
[2022-08-19] MEDS: NEURONTIN CAP 300 MG PO SCH ×2 (09:15→21:48)
[2022-08-19] MEDS: LOPRESSOR TAB 25 MG PO SCH ×2 (09:15→21:49)
[2022-08-19] MEDS: LOVENOX INJ 40 MG SYR SC SCH (09:19)
[2022-08-19] MEDS: DILAUDID INJ IVP PRN (10:46)
[2022-08-19] MEDS: COLACE CAP 100 MG PO SCH (21:50)
[2022-08-19] MEDS: SNACK - Diabetic Appropriate PO SCH (21:59)
--- NOTE | 2022-08-19 23:02 | PCM.PROG ---
Progress Note Progress Note for Day of Date of Exam: 08/19/22 Subjective Subjective: The patient is alert and awake this morning. He had no significant complications yesterday afternoon or through the night. The nurses report he became agitated yesterday evening so we started him on some Valium 10 mg every 8 hours and this helped him settle down and rest of the night. This morning he is alert and awake but having difficulty ambulating and getting around. I spoke with his attending radiologist Dr. Donahue he recommended keeping him for a few days so we can try and find an inpatient rehabilitation center that would take him. I am in agreement with this because the physical therapist have agreed that he does not need to put any significant weight on his foot that he does have operational. I have informed the charge nurse that she can inform the mental health case manager to start working on inpatient placement for physical therapy and hopefully by the first of next week we can get him transferred there so they can start inpatient physical therapy with him. 1 out of 2 wound cultures grew out gram-positive cocci however we do not have the organism nor the culture and sensitivity report back at this time. Past Medical Family Social History Allergies: Allergies Penicillins Adverse Reaction (Intermediate, Verified 06/27/22 07:32) ANAPHALEXIS REACTION Review of Systems ROS: Changes notes (describe) (Agitation) Vital Signs and I&O's Vital Signs: Vital Signs Temperature 97.9 F Temperature 98.5 F Pulse Rate [Bilateral Radial] 98 Pulse Rate [Bilateral Radial] 86 Respiratory Rate 20 Respiratory Rate 20 Blood Pressure [Right Arm] 193/83 Blood Pressure [Right Arm] 180/94 O2 Sat by Pulse Oximetry 98 O2 Sat by Pulse Oximetry 98 Intake and Output: Intake & Output 08/17/22 08/18/22 08/19/22 08/20/22 11:59 11:59 11:59 11:59 Intake Total 2110 / 2110 1780 / 1780 880 / 880 Output Total 1325 / 1325 400 / 400 200 / 200 Balance 785 / 785 1380 / 1380 680 / 680 Physical Exam Oriented: Unable to test (Patient is still groggy after coming out of surgery.) Eyes: Normal Nose: Normal Respiratory: Normal Cardiovascular: Normal Auscultation: Bowel Sounds: Normal Tenderness: Normal Skin: Normal Musculoskeletal: Normal Mood Description: Calm Affect: Quiet Speech Pattern: Clear and Appropriate Laboratory and Diagnostics Result Diagrams: 08/19/22 05:21 08/19/22 05:21 Labs: 08/17/22 13:59 Foot - Left Wound Gram Stain - Final 08/17/22 13:59 Foot - Left Wound Culture - Preliminary 08/17/22 13:59 Foot - Right Wound Gram Stain - Final 08/17/22 13:59 Foot - Right Wound Culture - Preliminary Laboratory WBC 6.9 X10^3/uL (3.6-10.0) 08/19/22 05:21 RBC 2.89 X10^6/uL (4.7-6.0) L 08/19/22 05:21 Hgb 9.2 g/dL (13.5-18.0) L 08/19/22 05:21 Hct 28.1 % (42.0-54.0) L 08/19/22 05:21 MCV 97.1 fL (80.0-100.0) 08/19/22 05:21 MCH 31.9 pg (27.0-34.0) 08/19/22 05:21 MCHC 32.9 g/dL (33.0-35.0) L 08/19/22 05:21 RDW 16.5 % (11.6-16.5) 08/19/22 05:21 Plt Count 134 X10^3/uL (150.0-450.0) L 08/19/22 05:21 Plt Count Comment Decreased (ADEQUATE) 08/19/22 05:21 MPV 7.8 fL (7.4-11.0) 08/19/22 05:21 Neut % (Auto) 52.0 % (42.0-75.0) 08/19/22 05:21 Lymph % (Auto) 24.1 % (21.0-51.0) 08/19/22 05:21 [place] % (Auto) 18.7 % (0.0-13.0) H 08/19/22 05:21 Eos % (Auto) 4.7 % (0.9-2.9) H 08/19/22 05:21 Baso % (Auto) 0.5 % (0.2-1.0) 08/19/22 05:21 Neut # (Auto) 3.6 x10^3/uL (2.2-4.8) 08/19/22 05:21 Lymph # (Auto) 1.7 X10^3/uL (1.3-2.9) 08/19/22 05:21 [place] # (Auto) 1.3 x10^3/uL (0.3-0.8) H 08/19/22 05:21 Eos # (Auto) 0.3 x10^3/uL (0.0-0.2) H 08/19/22 05:21 Baso # (Auto) 0.0 X10^3/uL (0.0-0.1) 08/19/22 05:21 Absolute Nucleated RBC 0.1 /100WBC 08/19/22 05:21 Total Counted 100 08/19/22 05:21 Neutrophils % (Manual) 49 % (39-76) 08/19/22 05:21 Lymphocytes % (Manual) 27 % (13-43) 08/19/22 05:21 Monocytes % (Manual) 15 % (4-9) H 08/19/22 05:21 Eosinophils % (Manual) 6 % (0-6) 08/19/22 05:21 Metamyelocytes % 2 08/19/22 05:21 Myelocytes % 1 08/19/22 05:21 Plt Morphology Comment Normal (NORMAL) 08/19/22 05:21 RBC Morphology Normal (NORMAL) 08/19/22 05:21 Sodium 140 mmol/L (136-145) 08/18/22 05:39 Corrected Sodium 141 mmol/L (136-145) 08/18/22 05:39 Potassium 4.0 mmol/L (3.5-5.1) 08/19/22 05:21 Chloride 104 mmol/L (98-107) 08/18/22 05:39 Carbon Dioxide 27.0 mmol/L (21-32) 08/18/22 05:39 BUN 20 mg/dL (7-18) H 08/18/22 05:39 Creatinine 1.41 mg/dL (0.70-1.30) H 08/18/22 05:39 Est GFR (MDRD) Af Amer > 60 (>60) 08/18/22 05:39 Est GFR (MDRD) Non-Af 54 (>60) L 08/18/22 05:39 Glucose 148 mg/dL (65-99) H 08/18/22 05:39 POC Glucose (mg/dL) 286 mg/dL (65-99) H 08/19/22 21:51 Calcium 7.2 mg/dL (8.5-10.1) L 08/18/22 05:39 Plan (1) Contracture, right ankle: Status: Acute Narrative Support Text: Patient grew out gram-positive cocci on 1 out of 2 wound cultures however the organism has not been identified and we are currently awaiting culture and sensitivity reports. Plan: Treatment per podiatry. (2) Essential (primary) hypertension: Status: Acute Plan: Increase metoprolol to tartrate from 25 mg twice daily to 50 mg twice daily. (3) Diabetes 1.5, managed as type 1: Status: Acute Plan: Sliding scale regular insulin per protocol. (4) Neuropathy: Status: Acute Plan: Resume pregabalin. (5) GE reflux: Status: Acute Plan: Resume pantoprazole. (6) Alcohol use disorder: Status: Acute Plan: According to the patient's he drinks approximately 1/5 of vodka daily. Because of that I will go ahead and give him Valium 10 mg at bedtime tonight. This should help keep him from having any DTs through the night and tomorrow morning. As long as he is doing well tomorrow morning we will plan on discharging home. (7) Agitation: Status: Acute Plan: Add Valium 10 mg p.o. every 8 hours. (8) Hyperkalemia: Status: Acute Plan: Kayexalate 30 g p.o. x1. Repeat potassium 2 hours after bowel movement. Repeat CMP tomorrow morning.
[2022-08-20] MEDS: VALIUM PO SCH (05:33)
[2022-08-20 06:44] LABS: BASOPHILS % (AUTO) 0.4 % (0.2-1.0); EOSINOPHILS # (AUTO) 0.4 x10^3/uL (0.0-0.2); EOSINOPHILS % (AUTO) 5.9 % (0.9-2.9); HEMATOCRIT 29.6 % (42.0-54.0); HEMOGLOBIN 9.7 g/dL (13.5-18.0); LYMPHOCYTES # (AUTO) 1.5 X10^3/uL (1.3-2.9); LYMPHOCYTES % (AUTO) 25.2 % (21.0-51.0); MEAN CORPUSCULAR HEMOGLOBIN 31.7 pg (27.0-34.0); MEAN CORPUSCULAR HGB CONC 32.9 g/dL (33.0-35.0); MEAN CORPUSCULAR VOLUME 96.4 fL (80.0-100.0); MEAN PLATELET VOLUME 7.7 fL (7.4-11.0); MONOCYTES # (AUTO) 1.2 x10^3/uL (0.3-0.8); NEUTROPHILS % (AUTO) 49.5 % (42.0-75.0); PLATELET COUNT 182 X10^3/uL (150.0-450.0); RED BLOOD COUNT 3.07 X10^6/uL (4.7-6.0); RED CELL DISTRIBUTION WIDTH 16.2 % (11.6-16.5); WHITE BLOOD COUNT 6.1 X10^3/uL (3.6-10.0)
[2022-08-20 07:05] LABS: BLOOD UREA NITROGEN 16 mg/dL (7-18); CALCIUM 7.8 mg/dL (8.5-10.1); CARBON DIOXIDE 23.7 mmol/L (21-32); CHLORIDE 105 mmol/L (98-107); COR NA(FOR HYPERGLY) 141 mmol/L (136-145); GLUCOSE 130 mg/dL (65-99); POTASSIUM 3.7 mmol/L (3.5-5.1); SODIUM 140 mmol/L (136-145); eGFR NON BLACK RACES > 60 (>60)
[2022-08-20 08:24] VITALS: BP 146/67; PULSE 88; RESP 18; TEMP 98; O2SAT 92
--- NOTE | 2022-08-20 08:29 | NOTE.SOAP ---
Soap Note Note for Day of Date of Exam: 08/20/22 Subjective Data Subjective Data: Patient doing well this am, AAOx3, no pain. No n/v/f/c/d/sob Objective Data Objective Data: Dressing has mild serous drainage. Significantly less edema to RLE. Pin site clean with no sign of infection Assessment Assessment: S/P Bilateral heel wound debridement with graft application, Application of Multiplanar External Fixator, Right lower extremity (DOS: 08/18/22) Foot Contracture, bilateral Non healing wound, bilateral feet Plan Plan: Patient was seen this am, despite multiple attempts to recommend a rehab facility from us and Physical therapy patient would like to go home. I explained that he is high risk for falling and he understands. He is willing to go against medical advice. Ok for DC. Patient to follow up in office with Dr. Rodarte next week
[2022-08-20] MEDS: PLAVIX PO SCH (08:40)
[2022-08-20] MEDS: LIPITOR TAB 80 MG PO SCH (08:40)
[2022-08-20] MEDS: ASPIRIN EC 81 MG PO SCH (08:40)
[2022-08-20] MEDS: PROTONIX TAB 40 MG PO SCH (08:40)
[2022-08-20] MEDS: NEURONTIN CAP 300 MG PO SCH (08:40)
[2022-08-20] MEDS: LOVENOX INJ 40 MG SYR SC SCH (08:42)
[2022-08-20] MEDS: ZESTRIL TAB 10 MG PO SCH (08:42)
[2022-08-20] MEDS: NICOTINE PATCH TD SCH (08:43)
[2022-08-20] MEDS ORDERED: LOPRESSOR TAB 25 MG PO SCH (09:00)
--- NOTE | 2022-08-20 11:05 | W.DIS.FURT ---
Summary of Discharge Discharge Summary of Date Date of Exam: 08/20/22 Admission Date Date of Admission: 08/17/22 Admission Diagnosis Hospital Course: Patient is a 67-year-old male that is status post bilateral heel wound debridement with graft application, application of multiplanar external fixator, right lower extremity for nonhealing wound. There are no complications postsurgery. It was recommended that patient go to a rehab facility due to high risk of falling. However patient was willing to go against medical advice and be discharged home. Patient was discharged in stable condition. Patient was instructed to follow-up with podiatry in 1 week. Vital Signs: Vital Signs (72 hours) 08/17/22 12:34 08/17/22 12:34 08/17/22 15:45 Temperature 97.6 F 98.0 F Pulse Rate 109 H 93 H Pulse Rate [Bilateral Radial] Respiratory Rate 18 17 Blood Pressure 180/71 145/68 Blood Pressure [Left Arm] Blood Pressure [Right Arm] O2 Sat by Pulse Oximetry 98 96 Oxygen Delivery Method Room Air Room Air Aerosol Face Tent Oxygen Flow Rate FIO2% 08/17/22 15:50 08/17/22 15:55 08/17/22 16:00 Temperature Pulse Rate 93 H 92 H 94 H Pulse Rate [Bilateral Radial] Respiratory Rate 17 17 17 Blood Pressure 129/54 128/51 116/55 Blood Pressure [Left Arm] Blood Pressure [Right Arm] O2 Sat by Pulse Oximetry 95 97 97 Oxygen Delivery Method Aerosol Face Tent Aerosol Face Tent Aerosol Face Tent Oxygen Flow Rate FIO2% 08/17/22 15:50 08/17/22 16:05 08/17/22 16:09 Temperature Pulse Rate 92 H Pulse Rate [Bilateral Radial] Respiratory Rate 17 17 17 Blood Pressure 131/58 Blood Pressure [Left Arm] Blood Pressure [Right Arm] O2 Sat by Pulse Oximetry 99 Oxygen Delivery Method Nasal Cannula Oxygen Flow Rate FIO2% 08/17/22 16:10 08/17/22 16:15 08/17/22 16:36 Temperature Pulse Rate 93 H 93 H Pulse Rate [Bilateral Radial] Respiratory Rate 18 18 Blood Pressure 117/57 112/57 Blood Pressure [Left Arm] Blood Pressure [Right Arm] O2 Sat by Pulse Oximetry 99 99 Oxygen Delivery Method Nasal Cannula Nasal Cannula Nasal Cannula Oxygen Flow Rate 3 FIO2% 32 08/17/22 16:36 08/17/22 16:30 08/17/22 16:45 Temperature 97.0 F L 97.0 F L Pulse Rate 95 H Pulse Rate [Bilateral Radial] 97 H 93 H Respiratory Rate 20 20 Blood Pressure Blood Pressure [Left Arm] 124/60 111/59 Blood Pressure [Right Arm] O2 Sat by Pulse Oximetry 97 96 96 Oxygen Delivery Method Nasal Cannula Nasal Cannula Oxygen Flow Rate 3 3 FIO2% 08/17/22 17:00 08/17/22 17:15 08/17/22 17:30 Temperature 97.0 F L 97.0 F L 97.0 F L Pulse Rate Pulse Rate [Bilateral Radial] 94 H 97 H 98 H Respiratory Rate 20 20 20 Blood Pressure Blood Pressure [Left Arm] 105/49 152/71 148/69 Blood Pressure [Right Arm] O2 Sat by Pulse Oximetry 96 96 95 Oxygen Delivery Method Nasal Cannula Nasal Cannula Nasal Cannula Oxygen Flow Rate 3 3 3 FIO2% 08/17/22 21:15 08/17/22 20:15 08/17/22 20:15 Temperature Pulse Rate 99 H Pulse Rate [Bilateral Radial] Respiratory Rate 20 Blood Pressure Blood Pressure [Left Arm] Blood Pressure [Right Arm] O2 Sat by Pulse Oximetry 96 Oxygen Delivery Method Room Air Oxygen Flow Rate FIO2% 08/17/22 19:00 08/17/22 20:00 08/17/22 22:15 Temperature 97.8 F Pulse Rate Pulse Rate [Bilateral Radial] 100 H Respiratory Rate 20 20 Blood Pressure Blood Pressure [Left Arm] Blood Pressure [Right Arm] 132/81 O2 Sat by Pulse Oximetry 95 Oxygen Delivery Method Room Air Room Air Oxygen Flow Rate FIO2% 08/18/22 00:07 08/18/22 00:00 08/18/22 04:00 Temperature 98.5 F 98.7 F Pulse Rate Pulse Rate [Bilateral Radial] 94 H 97 H Respiratory Rate 20 20 18 Blood Pressure Blood Pressure [Left Arm] Blood Pressure [Right Arm] 175/80 114/59 O2 Sat by Pulse Oximetry 96 95 Oxygen Delivery Method Room Air Room Air Oxygen Flow Rate FIO2% 08/18/22 00:37 08/18/22 07:00 08/18/22 07:45 Temperature 97.6 F Pulse Rate Pulse Rate [Bilateral Radial] 92 H Respiratory Rate 20 18 Blood Pressure Blood Pressure [Left Arm] Blood Pressure [Right Arm] 105/50 O2 Sat by Pulse Oximetry 91 L Oxygen Delivery Method Room Air Room Air Oxygen Flow Rate FIO2% 08/18/22 11:38 08/18/22 12:00 08/18/22 15:40 Temperature 97.9 F 97.9 F Pulse Rate Pulse Rate [Bilateral Radial] 92 H 86 Respiratory Rate 20 18 20 Blood Pressure Blood Pressure [Left Arm] Blood Pressure [Right Arm] 103/53 116/54 O2 Sat by Pulse Oximetry 92 L 95 Oxygen Delivery Method Room Air Room Air Oxygen Flow Rate FIO2% 08/18/22 12:38 08/18/22 20:44 08/18/22 19:00 Temperature Pulse Rate Pulse Rate [Bilateral Radial] Respiratory Rate 20 18 Blood Pressure Blood Pressure [Left Arm] Blood Pressure [Right Arm] O2 Sat by Pulse Oximetry Oxygen Delivery Method Room Air Oxygen Flow Rate FIO2% 08/18/22 20:00 08/18/22 21:44 08/19/22 00:00 Temperature 98.5 F 98.1 F Pulse Rate Pulse Rate [Bilateral Radial] 98 H 92 H Respiratory Rate 20 18 18 Blood Pressure Blood Pressure [Left Arm] Blood Pressure [Right Arm] 155/67 106/56 O2 Sat by Pulse Oximetry 97 93 L Oxygen Delivery Method Room Air Room Air Oxygen Flow Rate FIO2% 08/18/22 21:00 08/19/22 04:00 08/19/22 09:15 Temperature 98.3 F Pulse Rate Pulse Rate [Bilateral Radial] 91 H Respiratory Rate 18 18 Blood Pressure Blood Pressure [Left Arm] Blood Pressure [Right Arm] 139/66 O2 Sat by Pulse Oximetry 96 Oxygen Delivery Method Room Air Room Air Oxygen Flow Rate FIO2% 21 08/19/22 09:25 08/19/22 10:05 08/19/22 10:42 Temperature Pulse Rate Pulse Rate [Bilateral Radial] Respiratory Rate 18 Blood Pressure Blood Pressure [Left Arm] Blood Pressure [Right Arm] O2 Sat by Pulse Oximetry Oxygen Delivery Method Room Air Room Air Oxygen Flow Rate FIO2% 21 08/19/22 10:46 08/19/22 08:00 08/19/22 12:00 Temperature 99.0 F 98.2 F Pulse Rate Pulse Rate [Bilateral Radial] 97 H 87 Respiratory Rate 18 20 20 Blood Pressure Blood Pressure [Left Arm] Blood Pressure [Right Arm] 138/63 137/60 O2 Sat by Pulse Oximetry 90 L 94 L Oxygen Delivery Method Room Air Room Air Oxygen Flow Rate FIO2% 08/19/22 12:36 08/19/22 16:00 08/19/22 19:00 Temperature 98.5 F Pulse Rate Pulse Rate [Bilateral Radial] 86 Respiratory Rate 20 20 Blood Pressure Blood Pressure [Left Arm] Blood Pressure [Right Arm] 180/94 O2 Sat by Pulse Oximetry 98 Oxygen Delivery Method Room Air Room Air Oxygen Flow Rate FIO2% 08/19/22 20:00 08/20/22 00:00 08/20/22 04:00 Temperature 97.9 F 98.3 F 98.0 F Pulse Rate Pulse Rate [Bilateral Radial] 98 H 97 H 89 Respiratory Rate 20 20 20 Blood Pressure Blood Pressure [Left Arm] Blood Pressure [Right Arm] 193/83 172/72 135/76 O2 Sat by Pulse Oximetry 98 98 97 Oxygen Delivery Method Oxygen Flow Rate FIO2% 08/19/22 21:00 08/20/22 08:00 08/20/22 07:00 Temperature 98 F Pulse Rate Pulse Rate [Bilateral Radial] 88 Respiratory Rate 18 Blood Pressure Blood Pressure [Left Arm] Blood Pressure [Right Arm] 146/67 O2 Sat by Pulse Oximetry 92 L Oxygen Delivery Method Room Air Room Air Oxygen Flow Rate FIO2% 21 Labs: Laboratory Last Values WBC 6.1 X10^3/uL (3.6-10.0) 08/20/22 05:00 RBC 3.07 X10^6/uL (4.7-6.0) L 08/20/22 05:00 Hgb 9.7 g/dL (13.5-18.0) L 08/20/22 05:00 Hct 29.6 % (42.0-54.0) L 08/20/22 05:00 MCV 96.4 fL (80.0-100.0) 08/20/22 05:00 MCH 31.7 pg (27.0-34.0) 08/20/22 05:00 MCHC 32.9 g/dL (33.0-35.0) L 08/20/22 05:00 RDW 16.2 % (11.6-16.5) 08/20/22 05:00 Plt Count 182 X10^3/uL (150.0-450.0) 08/20/22 05:00 Plt Count Comment Decreased (ADEQUATE) 08/19/22 05:21 MPV 7.7 fL (7.4-11.0) 08/20/22 05:00 Neut % (Auto) 49.5 % (42.0-75.0) 08/20/22 05:00 Lymph % (Auto) 25.2 % (21.0-51.0) 08/20/22 05:00 [place] % (Auto) 19.0 % (0.0-13.0) H 08/20/22 05:00 Eos % (Auto) 5.9 % (0.9-2.9) H 08/20/22 05:00 Baso % (Auto) 0.4 % (0.2-1.0) 08/20/22 05:00 Neut # (Auto) 3.0 x10^3/uL (2.2-4.8) 08/20/22 05:00 Lymph # (Auto) 1.5 X10^3/uL (1.3-2.9) 08/20/22 05:00 [place] # (Auto) 1.2 x10^3/uL (0.3-0.8) H 08/20/22 05:00 Eos # (Auto) 0.4 x10^3/uL (0.0-0.2) H 08/20/22 05:00 Baso # (Auto) 0.0 X10^3/uL (0.0-0.1) 08/20/22 05:00 Absolute Nucleated RBC 0.2 /100WBC 08/20/22 05:00 Total Counted 100 08/19/22 05:21 Neutrophils % (Manual) 49 % (39-76) 08/19/22 05:21 Lymphocytes % (Manual) 27 % (13-43) 08/19/22 05:21 Monocytes % (Manual) 15 % (4-9) H 08/19/22 05:21 Eosinophils % (Manual) 6 % (0-6) 08/19/22 05:21 Metamyelocytes % 2 08/19/22 05:21 Myelocytes % 1 08/19/22 05:21 Plt Morphology Comment Normal (NORMAL) 08/19/22 05:21 RBC Morphology Normal (NORMAL) 08/19/22 05:21 Sodium 140 mmol/L (136-145) 08/20/22 05:00 Corrected Sodium 141 mmol/L (136-145) 08/20/22 05:00 Potassium 3.7 mmol/L (3.5-5.1) 08/20/22 05:00 Chloride 105 mmol/L (98-107) 08/20/22 05:00 Carbon Dioxide 23.7 mmol/L (21-32) 08/20/22 05:00 BUN 16 mg/dL (7-18) 08/20/22 05:00 Creatinine 1.00 mg/dL (0.70-1.30) 08/20/22 05:00 Est GFR (MDRD) Af Amer > 60 (>60) 08/20/22 05:00 Est GFR (MDRD) Non-Af > 60 (>60) 08/20/22 05:00 Glucose 130 mg/dL (65-99) H 08/20/22 05:00 POC Glucose (mg/dL) 146 mg/dL (65-99) H 08/20/22 05:45 Calcium 7.8 mg/dL (8.5-10.1) L 08/20/22 05:00 Reason For Visit: SX Discharge Date Discharge Date: 08/20/22 Discharge Diagnosis All Active Problems (Updated 08/18/22 @ 21:39 by SONG CASTORENA) Hyperkalemia (Acute) Agitation (Acute) Alcohol use disorder (Acute) Contracture, right ankle (Acute) Chronic ischemic heart disease, unspecified (Acute) Essential (primary) hypertension (Acute) Diabetes 1.5, managed as type 1 (Acute) GE reflux (Acute) Neuropathy (Acute) Atherosclerosis of [place] arteries of extremities with rest pain, right leg (Acute) Atherosclerosis of [place] arteries of extremities with rest pain, left leg (Acute) Plan of Treatment: Continue with present treatment and follow up plan. Pt is to keep follow up appointment as instructed and take medications as ordered. Discharge Medications Discharge Medications: Penicillins Adverse Reaction (Intermediate, Verified 06/27/22 07:32) ANAPHALEXIS REACTION CONTINUE taking the following medications pantoprazole 40 mg tablet,delayed release 1 tab PO QDAY 08/16/22 [History] atorvastatin 80 mg tablet 80 mg PO QDAY 08/17/22 [History] metoprolol tartrate 25 mg tablet 25 mg PO QDAY 08/17/22 [History] New Prescriptions enoxaparin 40 mg/0.4 mL subcutaneous syringe (Lovenox) 40 mg (0.4 mL) subcut QDAY 30 days #30 mL 08/18/22 [Rx] hydrocodone 5 mg-acetaminophen 325 mg tablet 1 tab PO Q4H PRN Pain #36 tabs 08/18/22 [Rx] Discharge Disposition Discharge Disposition: Home Discharge Condition: Stable Discharge Plan Discharge Plan Hospital Course: Patient is a 67-year-old male that is status post bilateral heel wound debridement with graft application, application of multiplanar external fixator, right lower extremity for nonhealing wound. There are no complications postsurgery. It was recommended that patient go to a rehab facility due to high risk of falling. However patient was willing to go against medical advice and be discharged home. Patient was discharged in stable condition. Patient was instructed to follow-up with podiatry in 1 week. Patient Disposition: HOME HEALTH SERVICE Condition: Stable Health Concerns: Post Hospitalization: new medications and changes needed to prevent readmission or further decline. Pt educated and given instructions on all concerns. Care Plan Goals: Problem: Pain/Alteration in Comfort Goal: Improve/ Resolve Pain; Achieve Pain Tolerance Instructions: Take pain medications as prescribed. Contact your primary care provider if your pain is unrelieved or worsens. Follow up with primary care provider as directed. Plan of Treatment: Continue with present treatment and follow up plan. Pt is to keep follow up appointment as instructed and take medications as ordered. Prescriptions: New hydrocodone-acetaminophen 5-325 mg Tablet 1 tab PO Q4H MDD 6 PRN (Reason: Pain) Qty: 36 0RF enoxaparin [Lovenox] 40 mg/0.4 mL Syringe 40 mg SUBCUT QDAY 30 Days Qty: 30 0RF Continued pantoprazole 40 mg tablet,delayed release (DR/EC) 1 tab PO QDAY metoprolol tartrate 25 mg Tablet 25 mg PO QDAY atorvastatin 80 mg Tablet 80 mg PO QDAY clopidogrel 75 mg tablet 1 tab PO QDAY clotrimazole-betamethasone 1-0.05 % cream 1 applic TOPICAL BID PRN lisinopril 10 mg tablet 0.5 tab PO QDAY gabapentin 300 mg capsule 1 cap PO BID hydroxyzine HCl 25 mg tablet 1 tab PO Q8H PRN (Reason: itch) mupirocin 2 % ointment 1 applic TOPICAL BID PRN insulin aspart U-100 [Novolog FlexPen U-100 Insulin] 100 unit/mL (3 mL) Insulin Pen See Rx Instructions .ROUTE .COMPLEX Rx Instructions: Take 17 units Sub-Q daily in the morning. Take 21 units Sub-Q daily at lunch. Take 27 units Sub-Q daily at night. pregabalin 100 mg capsule 1 cap PO BID Otoniel Pepear U-300 Insulin 300 unit/mL (1.5 mL) insulin pen 30 ea SUBCUT BID Label Comments: 50 UNITS SUBCUTANEOUS ONCE A DAY 90 DAYS 84 aspirin 81 mg Tablet,Delayed Release (Dr/Ec) 81 mg PO QDAY Follow ups/Referrals Follow ups/Referrals: [facility] [Other] (Wheelchair order sent on 08/18/22) VIKA HADDAD [STAFF PHYSICIAN] - (Referral sent 08/18/22) Dimas Rodarte [CONSULTING PHYSICIAN] - 08/24/22 9:30 am Instructions Instructions: Acetaminophen; Hydrocodone tablets or capsules, Fall Prevention in the Home, Adult, Bben-vi-[id number], Enoxaparin injection, Incision and Drainage, Care After, How to Care for an External Fixator, Pin Site Care, How to Use a Wheelchair, How and Where to Give Subcutaneous Enoxaparin Injections Activity Restrictions/Additional Instructions: Home Health to change dressing every 2 to 3 days. Activity: Toe touch weight bearing only Stand Alone Forms: Post Hospital Follow Up Care
== END 2022-08-20 11:02 | disposition home health service (06) ==
LOC: MED/SURG
PROVIDERS: ADMIT Obstetrics & Gynecology Obstetrics; ATTEND Obstetrics & Gynecology Obstetrics
PROC: SKINGR2 (2022-08-17 13:15)
PROC: DEBRIDE (2022-08-17 13:15)
PROC: APEXFIX (2022-08-17 13:15)
DX: E78.2 Mixed hyperlipidemia; M24.571 Contracture, right ankle; R26.89 Other abnormalities of gait and mobility; L97.418 Non-pressure chronic ulcer of right heel and midfoot with other specified severity; Z79.4 Long term (current) use of insulin; B96.89 Other specified bacterial agents as the cause of diseases classified elsewhere; I10 Essential (primary) hypertension; E11.65 Type 2 diabetes mellitus with hyperglycemia; B95.2 Enterococcus as the cause of diseases classified elsewhere; K21.9 Gastro-esophageal reflux disease without esophagitis; L97.428 Non-pressure chronic ulcer of left heel and midfoot with other specified severity; M86.8X7 Other osteomyelitis, ankle and foot; F10.20 Alcohol dependence, uncomplicated; R45.1 Restlessness and agitation; E87.5 Hyperkalemia

== ENCOUNTER 2022-08-27 19:36 | Inpatient (IN) ==
--- NOTE | 2022-08-27 20:16 | DR.EXTPAIN ---
HPI Time seen Time Seen by Provider: 08/27/22 20:15 PCP Primary Care Physician: DR. CASAS HPI Comment HPI Comment: PATIENT IS 67YR OLD MALE IN ER WITH BELOW HISTORY. Complaint/Symptoms Chief Complaint Doctor Comments: PAIN LEGS AND FEET. FLIES GUT ON WOUND AND NOW MAGGOTS IN THE WOUND. HAD DEBRIDEMENT DONE ON HEELS ON 08/22/22. SAW DR. MURILLO ON MONDAY. WOUND DRAINING AND NOTED MAGGOTS COMMINHG OUT OF WOUND. PATIENT IS COMPLAINING OF INCREASING PAIN. HE IS A DIABETIC AND HIS GLUCOSE IS RUNNING HIGH. DENIES FEVER BUT INCREASE TEMP IN ER. CURRENTLY HAVING 8/10 PAIN.THERE IS MULTIPLANER EXTERNAL FIXATOR DEVICE ON RIGHT LEG AND ANKLE. Chief Complaint:: "SURGERY ON MONDAY BY DR. NGUYEN, FLIES GOT TO SURGICAL SITE" COVID-19 Coronavirus risk:travel/contact w/high risk person: No Has patient experienced Coronavirus symptoms: No Nurses notes reviewed Nurses Notes Review: Yes Source History Provided: Patient Mode of arrival Mode of Arrival: Wheelchair Timing Onset of Chief Complaint: 08/17/22 PMH PMH Past Medical History: Yes Past Medical History: Arthritis, Diabetes, GERD and Hypertension Past Surgical History: Yes Surgical History: Angioplasty/Stents and Other Past Surgical History Comment: NECK Family History History of Family Medical Conditions: Yes Family Medical History: Diabetes Mellitus and Hypertension Social History Alcohol Use: Heavy Do you use any recreational Drugs:: No Lives With: Spouse Lives Where: Home Travel Risk Coronavirus risk:travel/contact w/high risk person: No Has patient experienced Coronavirus symptoms: No Infectious screening In the last 2 months have you had wt loss of >10#?: NO Have you had fever, night sweats or hemotysis?: No Have you traveled outside the country in the last 6 months?: No Isolation: Standard ROS Review of Systems Constitutional: Fever, Weakness and Fatigue Eyes: No Symptoms Reported ENTM: No Symptoms Reported; negative Nose Discharge or Nose Congestion Respiratoy: Short of Breath (ON EXERTION.); negative Moist Cough or Wheezing Cardiovascular: Edema (WOUND BOTH HEELS.); negative Chest Pain Gastrointestinal/Abdominal: Nausea; negative Abdominal Pain, Diarrhea or Vomiting Genitourinary: No Symptoms Reported; negative Dysuria Neurological: Weakness; negative Headache or Dizziness Musculoskeletal: Leg (PAIN BOTH LEGS) and Foot (PAIN BOTH FEET/HEEL POST SURGICAL DEBRIDEMENT OF WOUND. RT FOOT ULCER WITH MAGGOTS) Integumentary: Wound (INFECTED ULCERS FEET.) Hematologic/Lymphatic: Easy Bruising Endocrine: Increased Thirst; negative Increased Urine Psychiatric: No Symptoms Reported All Other Systems: Reviewed and Negative PE Vital Signs Vitals: Vital Signs Temperature 100.0 F Temperature 99.7 F Pulse Rate [Right Radial] 129 Pulse Rate [Right Radial] 133 Pulse Rate 118 Respiratory Rate 18 Respiratory Rate 20 Respiratory Rate 20 Respiratory Rate 22 Respiratory Rate 20 Blood Pressure [Right Arm] 168/70 Blood Pressure [Right Arm] 199/84 Blood Pressure 132/58 O2 Sat by Pulse Oximetry 95 O2 Sat by Pulse Oximetry 92 O2 Sat by Pulse Oximetry 97 General Limitations: No Limitations General Appearance: Alert and In No Apparent Distress (AT REST.) Head Head Exam: Normal Inspection Eyes Eye exam: Normal Appearance; negative Scleral Icterus or Conjunctival Injection ENT ENT Exam: Normal Exam, Normal Oropharynx, Normal External Ear Exam and TM's Normal Bilaterally Neck Neck Exam: Normal Inspection and Trachea Midline; negative Tenderness Chest Chest Inspection: Normal Inspection and Symmetric Chest Wall Rise; negative Tenderness Respiratory Respiratory Exam: Normal Lung Sounds Bilat; negative Accessory Muscle Use, Chest Wall Tenderness or Respiratory Distress Respiratory Exam: Bilateral: Rhonchi Cardiovascular Cardiovascular Exam: Regular Rate, Normal Rhythm and Normal Heart Sounds; negative Systolic Murmur or Diastolic Murmur Abdominal Exam Abdominal Exam: Normal Inspection, Normal Bowel Sounds and Soft; negative Tenderness Extremities Extremities Exam: Tenderness (BANDAGE ON BOTH LOWER LEGS WITH MULTIPLANER EXTERNAL FIXATION DEVICE ON RT LOWER LEG.) Lower Extremities Lower Leg Exam: Other (SURGICAL WOUND DRESSING SOILED AND SMELLING. MAGGOTS PRESENT ON RT SIDE.) Foot/Toe Exam: Other (WOUND NOT INSPECTED.) Back Back Exam: Normal Inspection; negative (R) CVA Tenderness or (L) CVA Tenderness Neurological Neurological Exam: Alert and Oriented X3; negative Motor Sensory Deficit Psychiatric Psychiatric Exam: Normal Affect and Normal Mood Skin Skin Exam: Other (INFECTED WOUND BOTH FEET AND LEG.) MDM Differential Diagnosis Differential Diagnosis: Other (INFECTED SURGICAL WOUND, HYPERGLYCEMIA, SEPSIS, DKA.) COURSE Treatment Treatment: SEE ORDERS DONE WHILE PATIENT WAS IN ER. PATIENT WAS GIVEN DILAUDID 1MG IV AND ZOFRAN 4MG IV. PAIN IMPROVING. HE WAS ALSO GIVEN VANCOMYCIN 1GM IVPB WHILE IN ER. NS 1L IV BOLUS WAS ALSO GIVEN WHILE PATIENT WAS IN ER. HE WAS ADMITTED TO HOSPITAL FOR FURTHER MANAGEMENT. Consultation Consultation Comments: DISCUSSED PATIENT WITH DR. MURILLO. PORTABLE CANTEEN OPERATOR DR TO ADMIT PATIENT. DR. MUSTAFA PORTABLE CANTEEN OPERATOR FOR MEDICINE WILL ADMIT PATIENT. Education/Counseling Education/Counseling: Patient and Family Educated On: Treatment and Diagnosis ROR Labs Reviewed Laboratory Results Reviewed?: Yes 09/01/22 05:18 09/01/22 05:18 Laboratory: 08/27/22 21:00 Blood Blood Culture - Final 08/27/22 20:40 Blood Blood Culture - Final 08/27/22 20:39 Foot - Right Wound Gram Stain - Final 08/27/22 20:39 Foot - Right Wound Culture - Final Enterobacter Cloacae Acinetobacter Lwoffii WBC 12.9 X10^3/uL (3.6-10.0) H 08/27/22 20:40 RBC 3.66 X10^6/uL (4.7-6.0) L 08/27/22 20:40 Hgb 11.5 g/dL (13.5-18.0) L 08/27/22 20:40 Hct 34.6 % (42.0-54.0) L 08/27/22 20:40 MCV 94.5 fL (80.0-100.0) 08/27/22 20:40 MCH 31.4 pg (27.0-34.0) 08/27/22 20:40 MCHC 33.3 g/dL (33.0-35.0) 08/27/22 20:40 RDW 16.0 % (11.6-16.5) 08/27/22 20:40 Plt Count 266 X10^3/uL (150.0-450.0) 08/27/22 20:40 MPV 7.9 fL (7.4-11.0) 08/27/22 20:40 Neut % (Auto) 67.2 % (42.0-75.0) 08/27/22 20:40 Lymph % (Auto) 13.9 % (21.0-51.0) L 08/27/22 20:40 [place] % (Auto) 18.2 % (0.0-13.0) H 08/27/22 20:40 Eos % (Auto) 0.3 % (0.9-2.9) L 08/27/22 20:40 Baso % (Auto) 0.4 % (0.2-1.0) 08/27/22 20:40 Neut # (Auto) 8.7 x10^3/uL (2.2-4.8) H 08/27/22 20:40 Lymph # (Auto) 1.8 X10^3/uL (1.3-2.9) 08/27/22 20:40 [place] # (Auto) 2.4 x10^3/uL (0.3-0.8) H 08/27/22 20:40 Eos # (Auto) 0.0 x10^3/uL (0.0-0.2) 08/27/22 20:40 Baso # (Auto) 0.1 X10^3/uL (0.0-0.1) 08/27/22 20:40 Absolute Nucleated RBC 0.0 /100WBC 08/27/22 20:40 Sodium 138 mmol/L (136-145) 08/27/22 20:40 Corrected Sodium 142 mmol/L (136-145) 08/27/22 20:40 Potassium 3.9 mmol/L (3.5-5.1) 08/27/22 20:40 Chloride 99 mmol/L (98-107) 08/27/22 20:40 Carbon Dioxide 23.5 mmol/L (21-32) 08/27/22 20:40 BUN 28 mg/dL (7-18) H 08/27/22 20:40 Creatinine 2.99 mg/dL (0.70-1.30) H 08/27/22 20:40 Est GFR (MDRD) Af Amer 27 (>60) L 08/27/22 20:40 Est GFR (MDRD) Non-Af 23 (>60) L 08/27/22 20:40 Glucose 275 mg/dL (65-99) H 08/27/22 20:40 Lactic Acid 3.0 mmol/L (0.4-2.0) H 08/27/22 20:40 Calcium 8.0 mg/dL (8.5-10.1) L 08/27/22 20:40 Corrected Calcium 8.8 mg/dL (8.5-10.1) 08/27/22 20:40 Phosphorus 2.8 mg/dL (2.6-4.7) 08/27/22 20:40 Magnesium 1.5 mg/dL (2.0-2.9) L 08/27/22 20:40 Total Bilirubin 0.30 mg/dL (0.2-1.0) 08/27/22 20:40 AST 21 Units/L (15-37) 08/27/22 20:40 ALT 19 Units/L (12-78) 08/27/22 20:40 Alkaline Phosphatase 122 Units/L (46-116) H 08/27/22 20:40 Total Protein 7.6 g/dL (6.4-8.2) 08/27/22 20:40 Albumin 3.0 g/dL (3.4-5.0) L 08/27/22 20:40 Globulin 4.6 g/dL (2.5-4.5) H 08/27/22 20:40 Albumin/Globulin Ratio 0.7 Ratio (1.1-2.1) L 08/27/22 20:40 Amylase 22 Units/L (25-115) L 08/27/22 20:40 Lipase 46 Units/L (73-393) L 08/27/22 20:40 Cortisol 17.8 ug/dL 08/27/22 20:40 Acetone, Semi-Quant Negative (NEGATIVE) 08/27/22 20:40 XRAY XRAY Interpreted by: Radiologist (REPORT NOTED.) and Self EKG Rate: 126 [place]: Normal Rhythm: ST Block: None Hypertrophy: LAE, TATYANA and LVH ST: Inf, Ischemia and Infarct (AGE INDETERMINED.) Opioid Opioid Risk Tool Age (David box if 16-45): No History of Preadolescent Sexual Abuse: No Total: 0 Total Score Risk Category: Low Risk Copyright: Blaise FAJARDO predicting aberrant behaviors Discharge Plan Diagnosis Discharge Problem: Infected wound, Cellulitis, Hyperglycemia, Renal insufficiency Discharge Plan Patient Disposition: ADMITTED INPATIENT Condition: Stable
[2022-08-27 21:09] LABS: BASOPHILS # (AUTO) 0.1 X10^3/uL (0.0-0.1); BASOPHILS % (AUTO) 0.4 % (0.2-1.0); EOSINOPHILS % (AUTO) 0.3 % (0.9-2.9); HEMATOCRIT 34.6 % (42.0-54.0); HEMOGLOBIN 11.5 g/dL (13.5-18.0); LYMPHOCYTES # (AUTO) 1.8 X10^3/uL (1.3-2.9); LYMPHOCYTES % (AUTO) 13.9 % (21.0-51.0); MEAN CORPUSCULAR HEMOGLOBIN 31.4 pg (27.0-34.0); MEAN CORPUSCULAR HGB CONC 33.3 g/dL (33.0-35.0); MEAN CORPUSCULAR VOLUME 94.5 fL (80.0-100.0); MEAN PLATELET VOLUME 7.9 fL (7.4-11.0); MONOCYTES # (AUTO) 2.4 x10^3/uL (0.3-0.8); MONOCYTES % (AUTO) 18.2 % (0.0-13.0); NEUTROPHILS # (AUTO) 8.7 x10^3/uL (2.2-4.8); NEUTROPHILS % (AUTO) 67.2 % (42.0-75.0); PLATELET COUNT 266 X10^3/uL (150.0-450.0); RED BLOOD COUNT 3.66 X10^6/uL (4.7-6.0); WHITE BLOOD COUNT 12.9 X10^3/uL (3.6-10.0)
[2022-08-27 21:17] LABS: CARBON DIOXIDE 23.5 mmol/L (21-32); COR CA(FOR HYPOALB) 8.8 mg/dL (8.5-10.1); CREATININE 2.99 mg/dL (0.70-1.30); POTASSIUM 3.9 mmol/L (3.5-5.1); TOTAL PROTEIN 7.6 g/dL (6.4-8.2)
--- NOTE | 2022-08-27 21:30 | RAD ---
HISTORYSOB, HTN, DIABETESSTUDYCHEST, 1 VIEWCOMPARISONJune 2022TECHNIQUETwo frontal views of the chest were obtained.FINDINGSThe heart is not enlarged. There is no focal infiltrate or effusion. There is no pneumothorax. The osseous structures are intact. There is evidence for anterior cervical interbody fusion of at least 4 levels of the lower cervical and upper thoracic spine.IMPRESSIONNo active pulmonary disease.Electronically signed by: Anne Price (Aug 27, 2022 21:28:44)
[2022-08-27] MEDS ORDERED: ZOFRAN INJ 4 MG VIAL IVP ONE (22:21)
[2022-08-27] MEDS ORDERED: DILAUDID INJ IVP ONE (22:23)
[2022-08-27] MEDS ORDERED: NS 1,000 ML IV 1,000 ML IV ONE (22:25)
[2022-08-27] MEDS ORDERED: VANCOMYCIN IV *PREMIX 1 G/200 ML BAG 1 G/200 ML PIGGYBACK IV ONE ×2 (22:25→22:30)
[2022-08-27] MEDS ORDERED: ZOFRAN INJ 4 MG VIAL ONE (22:29)
[2022-08-27] MEDS ORDERED: DILAUDID INJ ONE (22:29)
[2022-08-27] MEDS ORDERED: NS 1,000 ML IV 1,000 ML ONE ×2 (22:30→23:37)
[2022-08-27] MEDS ORDERED: TYLENOL 500 MG TAB EXTRA STRENGTH PO ONE (22:44)
[2022-08-27] MEDS: NS 1,000 ML IV 1,000 ML IV SCH (22:54)
[2022-08-27] MEDS: TYLENOL 500 MG TAB EXTRA STRENGTH PO PRN (22:55)
[2022-08-27] MEDS ORDERED: PHARMACY CONSULT - VANCOMYCIN XX SCH (23:00)
[2022-08-27 23:58] LABS: MAGNESIUM 1.5 mg/dL (2.0-2.9); PHOSPHORUS 2.8 mg/dL (2.6-4.7)
--- NOTE | 2022-08-28 00:04 | EKG ---
Test Reason : HTN Blood Pressure : */* mmHG Vent. Rate : 126 BPM Atrial Rate : 126 BPM P-R Int : 164 ms QRS Dur : 72 ms QT Int : 288 ms P-R-T Axes : 21 -12 106 degrees QTc Int : 417 ms Sinus tachycardia Possible Left atrial enlargement Minimal voltage criteria for LVH, may be normal variant ( R in aVL ) Inferior infarct , age undetermined T wave abnormality, consider lateral ischemia Abnormal ECG When compared with ECG of 05-AUG-2022 13:44, Inferior infarct is now present Non-specific change in ST segment in Lateral leads T wave inversion now evident in Lateral leads Confirmed by Rahul Doss ([id number]) on 08/28/2022 7:55:55 AM Referred By: Confirmed By: Rahul Doss
[2022-08-28] MEDS ORDERED: NS 1,000 ML IV 1,000 ML IV SCH (00:12)
[2022-08-28 00:16] LABS: ABG BASE EXCESS -1.2 mmol/L (-2.0-2.0); ABG HCO3 22.6 mmol/L (22-26)
[2022-08-28 00:17] LABS: ABG ALLEN TEST POS
[2022-08-28] MEDS: NS 1,000 ML IV 1,000 ML IV SCH ×5 (00:30→23:02)
[2022-08-28] MEDS ORDERED: NS IRRIGATION* 500 ML IR ONE ×2 (00:46→07:42)
[2022-08-28 01:19] VITALS: BMI 36.5
[2022-08-28] MEDS ORDERED: BETADINE SOLN ONE ×2 (01:44→07:41)
[2022-08-28] MEDS ORDERED: CONSULT PHARMACY - POTASSIUM & MAGNESIUM XX SCH (02:00)
[2022-08-28] MEDS ORDERED: ZOFRAN INJ 4 MG VIAL IVP PRN (02:10)
[2022-08-28] MEDS ORDERED: ZOFRAN INJ 4 MG VIAL ONE (02:11)
[2022-08-28] MEDS: DAKINS SOLUTION HALF STRENGTH 0.25% EXT SCH ×2 (02:42→09:42)
[2022-08-28] MEDS ORDERED: STERILE WATER IRRIGATION IR ONE (02:46)
[2022-08-28] MEDS: BETADINE SOLN TOP ONE ×2 (02:48→09:41)
[2022-08-28] MEDS: NS IRRIGATION* 500 ML IR ONE ×2 (02:53→09:41)
[2022-08-28] MEDS ORDERED: MAGNESIUM SULFATE 1 GRAM/100 mL PREMIX 1 G/100 ML BAG IV ONE (03:00)
[2022-08-28 05:16] LABS: BILIRUBIN,URINE NEGATIVE (NEGATIVE); BLOOD/HEMOGLOBIN,URINE 2+ (NEGATIVE); GLUCOSE, URINE 3+ (NEGATIVE); KETONES,URINE NEGATIVE (NEGATIVE); LEUKOCYTE ESTERASE ,URINE NEGATIVE (NEGATIVE); NITRITES,URINE NEGATIVE (NEGATIVE); PROTEIN,URINE 2+ (NEGATIVE); UROBILINOGEN,URINE NORMAL (NORMAL)
[2022-08-28 05:20] LABS: APPEARANCE,URINE CLEAR (CLEAR); COLOR,URINE DARK YELLOW (YELLOW)
[2022-08-28 05:39] LABS: BACTERIA,URINE TRACE /HPF (NEGATIVE); GRANULAR CASTS,URINE FEW /LPF (NEGATIVE); HYALINE CASTS, URINE MODERATE /LPF (NEGATIVE); SQUAMOUS EPITHELIAL CELL,UR FEW /HPF (NEGATIVE)
[2022-08-28 06:44] LABS: INR 1.12 (0.8-1.3)
[2022-08-28 06:45] LABS: BASOPHILS # (AUTO) 0.1 X10^3/uL (0.0-0.1); BASOPHILS % (AUTO) 0.5 % (0.2-1.0); EOSINOPHILS % (AUTO) 0.4 % (0.9-2.9); HEMATOCRIT 33.1 % (42.0-54.0); HEMOGLOBIN 10.8 g/dL (13.5-18.0); LYMPHOCYTES # (AUTO) 1.7 X10^3/uL (1.3-2.9); LYMPHOCYTES % (AUTO) 15.3 % (21.0-51.0); MEAN CORPUSCULAR HEMOGLOBIN 30.9 pg (27.0-34.0); MEAN CORPUSCULAR HGB CONC 32.5 g/dL (33.0-35.0); MEAN CORPUSCULAR VOLUME 95.2 fL (80.0-100.0); MEAN PLATELET VOLUME 7.9 fL (7.4-11.0); MONOCYTES % (AUTO) 17.6 % (0.0-13.0); NEUTROPHILS # (AUTO) 7.4 x10^3/uL (2.2-4.8); NEUTROPHILS % (AUTO) 66.2 % (42.0-75.0); PLATELET COUNT 248 X10^3/uL (150.0-450.0); RED BLOOD COUNT 3.48 X10^6/uL (4.7-6.0); WHITE BLOOD COUNT 11.2 X10^3/uL (3.6-10.0)
[2022-08-28 06:51] LABS: ALBUMIN 2.7 g/dL (3.4-5.0); CARBON DIOXIDE 26.2 mmol/L (21-32); CREATININE 2.11 mg/dL (0.70-1.30); POTASSIUM 3.9 mmol/L (3.5-5.1); TOTAL PROTEIN 7.1 g/dL (6.4-8.2)
[2022-08-28] MEDS ORDERED: HYDROGEN PEROXIDE 3% ONE (07:49)
--- NOTE | 2022-08-28 09:11 | NOTE.SOAP ---
Soap Note Note for Day of Date of Exam: 08/28/22 Subjective Data Subjective Data: Patient presented to ER with chief complaint of "fly that went into his wound". Patient underwent surgery 08/17 for wound debridement of BL heels and Multiplanar external fixator application. Upon his admission, patient was adamant about going home despite recommendations from podiatry and physical therapy to go to a rehab facility. Patient was seen in Dr. Rodarte's office last week, wound appeared macerated although no site of critters. Patient presented with shivers and nausea upon evaluation. Nurse states that she tried to irrigate and remove as many of the larvae that were on the wounds last night. Objective Data Objective Data: Full thickness wound noted to bilateral heels with a fibrogranular wound bed. Overlying the two distal lateral pin sites as well as the right wound, presents a mass quantity of larvae that are alive. Assessment Assessment: Sepsis Maggot infestation, Right foot s/p Wound debridement with External Fixator Application (DOS: 08/17/22) Plan Plan: Patient seen at bedside, discussed plan at length. With lack of compliance there is risk of limb loss. With assistance from nursing staff, wound and pin sites were copiously irrigated with hydrogen peroxide followed my betadine saline solution. Additional maggots were manually removed with a pick pulling machine tender. Wound and pin sites were cleansed and packed with betadine soaked gauze. Patient will possibly need to go to the operating room to remove the external fixator and undergo an I&D. Will continue monitoring in the meantime with routine dressing changes and IV antibiotics - Clinda 300 ordered
[2022-08-28] MEDS: TYLENOL 500 MG TAB EXTRA STRENGTH PO PRN (10:28)
[2022-08-28] MEDS: ZESTRIL TAB 10 MG PO SCH (10:29)
[2022-08-28] MEDS: VSL#3 PO SCH (10:29)
[2022-08-28] MEDS: PROTONIX TAB 40 MG PO SCH (10:30)
[2022-08-28] MEDS: LOPRESSOR TAB 25 MG PO SCH (10:30)
[2022-08-28] MEDS: LIPITOR TAB 80 MG PO SCH (10:30)
[2022-08-28] MEDS ORDERED: CLEOCIN 300 MG IV PREMIX 300 MG/50 ML BAG IV SCH (14:00)
[2022-08-28] MEDS: CLEOCIN 600 MG IV PREMIX 600 MG/50 ML BAG IV SCH ×2 (15:56→22:23)
[2022-08-28] MEDS: NovoLIN R (or HumuLIN R) SUBCUT PRN (16:22)
[2022-08-28] MEDS: SNACK - Diabetic Appropriate PO SCH (19:46)
[2022-08-28] MEDS ORDERED: SNACK - Diabetic Appropriate PO SCH (20:00)
[2022-08-28] MEDS: VALIUM INJ IVP PRN (20:21)
[2022-08-28] MEDS: VANCOMYCIN IV *PREMIX 1 G/200 ML BAG 1 G/200 ML PIGGYBACK IV SCH (20:22)
[2022-08-28] MEDS ORDERED: TOUJEO SOLOSTAR PEN SC SCH (22:00)
[2022-08-29] MEDS: NS 1,000 ML IV 1,000 ML IV SCH ×2 (03:32→06:02)
[2022-08-29 05:00] LABS: BASOPHILS # (AUTO) 0.1 X10^3/uL (0.0-0.1); BASOPHILS % (AUTO) 0.7 % (0.2-1.0); EOSINOPHILS # (AUTO) 0.4 x10^3/uL (0.0-0.2); EOSINOPHILS % (AUTO) 3.2 % (0.9-2.9); HEMATOCRIT 29.7 % (42.0-54.0); HEMOGLOBIN 9.9 g/dL (13.5-18.0); MEAN CORPUSCULAR HEMOGLOBIN 31.5 pg (27.0-34.0); MEAN CORPUSCULAR HGB CONC 33.2 g/dL (33.0-35.0); MEAN PLATELET VOLUME 8.4 fL (7.4-11.0); MONOCYTES # (AUTO) 1.8 x10^3/uL (0.3-0.8); MONOCYTES % (AUTO) 15.2 % (0.0-13.0); NEUTROPHILS # (AUTO) 7.6 x10^3/uL (2.2-4.8); NEUTROPHILS % (AUTO) 63.9 % (42.0-75.0); PLATELET COUNT 241 X10^3/uL (150.0-450.0); RED BLOOD COUNT 3.13 X10^6/uL (4.7-6.0); RED CELL DISTRIBUTION WIDTH 16.1 % (11.6-16.5)
[2022-08-29] MEDS: CLEOCIN 600 MG IV PREMIX 600 MG/50 ML BAG IV SCH (05:05)
[2022-08-29 05:16] LABS: ALANINE AMINOTRANSFERASE 18 Units/L (12-78); ALBUMIN 2.4 g/dL (3.4-5.0); ALKALINE PHOSPHATASE 107 Units/L (46-116); ASPARTATE AMINO TRANSFERASE 44 Units/L (15-37); BLOOD UREA NITROGEN 23 mg/dL (7-18); CALCIUM 7.6 mg/dL (8.5-10.1); CARBON DIOXIDE 24.2 mmol/L (21-32); CHLORIDE 104 mmol/L (98-107); COR CA(FOR HYPOALB) 8.9 mg/dL (8.5-10.1); COR NA(FOR HYPERGLY) 145 mmol/L (136-145); CREATININE 1.27 mg/dL (0.70-1.30); GLUCOSE 298 mg/dL (65-99); MAGNESIUM 1.7 mg/dL (2.0-2.9); POTASSIUM 3.9 mmol/L (3.5-5.1); SODIUM 140 mmol/L (136-145); TOTAL PROTEIN 6.6 g/dL (6.4-8.2); eGFR NON BLACK RACES > 60 (>60)
[2022-08-29 05:35] LABS: WHITE BLOOD COUNT 13.6 X10^3/uL (3.6-10.0)
[2022-08-29 05:36] LABS: ANISOCYTOSIS SLIGHT; PLATELET MORPHOLOGY COMMENT NORMAL (NORMAL)
[2022-08-29] MEDS: NovoLIN R (or HumuLIN R) SUBCUT PRN ×4 (05:40→20:20)
[2022-08-29] MEDS ORDERED: MAG-OX TAB PO SCH ×2 (06:00→21:00)
[2022-08-29] MEDS ORDERED: CONSULT PHARMACY - POTASSIUM & MAGNESIUM XX SCH (06:00)
--- NOTE | 2022-08-29 08:02 | NOTE.SOAP ---
Soap Note Note for Day of Date of Exam: 08/29/22 Subjective Data Subjective Data: Patient seen bedside this am, feeling better with no constitutional symptoms or pain Objective Data Objective Data: Fibrogranular wound bed noted to bilateral heel wounds. Upon removal of dressings of the right foot- noted to have a couple of maggots (5-6) but significantly less than yesterday. Malodorous with mild serous drainage. NVS intact. Able to move toes. Assessment Assessment: Sepsis Maggot infestation with cellulitis, Right lower extremity s/p Plan Plan: Patient seen at bedside, discussed plan at length. With lack of compliance there is risk of limb loss. With assistance from nursing staff, wound and pin sites were copiously irrigated with hydrogen peroxide and the two affected pins were removed in an aseptic manner. Prior to removing the pins, they were cleansed with betadine solution and cut appropriate for removal. No maggots were appreciated after irrigating the wound. Wound and pin sites were cleansed and packed with betadine soaked gauze. Discussed with the patient once again recommendations of going to a rehab facility when discharge. Patient was amenable but would like to think about it. Due to the instability of the frame, currently, patient is to be NWB to the E. We will be taking the patient to the operating room on monday for a revision of the the external fixator frame with anything else deemed medically necessary. Please keep patient NPO after midnight on Thursday 08/31
[2022-08-29] MEDS: VSL#3 PO SCH (08:35)
[2022-08-29] MEDS: ZESTRIL TAB 10 MG PO SCH (08:36)
[2022-08-29] MEDS: PROTONIX TAB 40 MG PO SCH (08:36)
[2022-08-29] MEDS: LIPITOR TAB 80 MG PO SCH (08:36)
[2022-08-29] MEDS: LOPRESSOR TAB 25 MG PO SCH (08:36)
[2022-08-29] MEDS: MAG-OX TAB PO SCH ×2 (08:37→09:45)
[2022-08-29] MEDS: DAKINS SOLUTION HALF STRENGTH 0.25% EXT SCH (08:48)
[2022-08-29] MEDS: NS 1,000 ML IV 1,000 ML with MAGNESIUM SULFATE 50% INJ VIAL 1 G IV SCH ×4 (10:05→19:35)
[2022-08-29] MEDS: ROCEPHIN VIAL 1 GRAM 1 G in NS 100 ML IV 100 ML IV SCH (10:06)
[2022-08-29] MEDS ORDERED: HYDROGEN PEROXIDE 3% ONE (16:44)
[2022-08-29] MEDS: TYLENOL 500 MG TAB EXTRA STRENGTH PO PRN (16:49)
[2022-08-29] MEDS: SNACK - Diabetic Appropriate PO SCH (20:39)
[2022-08-29] MEDS: VANCOMYCIN IV *PREMIX 1 G/200 ML BAG 1 G/200 ML PIGGYBACK IV SCH (20:40)
[2022-08-29] MEDS: TOUJEO SOLOSTAR PEN SC SCH (21:39)
[2022-08-30] MEDS: NS 1,000 ML IV 1,000 ML with MAGNESIUM SULFATE 50% INJ VIAL 1 G IV SCH ×2 (05:23)
[2022-08-30] MEDS: NovoLIN R (or HumuLIN R) SUBCUT PRN ×3 (05:32→17:24)
[2022-08-30 05:34] LABS: BASOPHILS % (AUTO) 0.3 % (0.2-1.0); EOSINOPHILS # (AUTO) 0.3 x10^3/uL (0.0-0.2); EOSINOPHILS % (AUTO) 4.1 % (0.9-2.9); HEMOGLOBIN 9.8 g/dL (13.5-18.0); LYMPHOCYTES # (AUTO) 1.8 X10^3/uL (1.3-2.9); LYMPHOCYTES % (AUTO) 22.1 % (21.0-51.0); MEAN CORPUSCULAR HEMOGLOBIN 31.6 pg (27.0-34.0); MEAN CORPUSCULAR HGB CONC 33.6 g/dL (33.0-35.0); MEAN CORPUSCULAR VOLUME 94.1 fL (80.0-100.0); MEAN PLATELET VOLUME 8.2 fL (7.4-11.0); MONOCYTES % (AUTO) 12.6 % (0.0-13.0); NEUTROPHILS # (AUTO) 4.9 x10^3/uL (2.2-4.8); NEUTROPHILS % (AUTO) 60.9 % (42.0-75.0); PLATELET COUNT 250 X10^3/uL (150.0-450.0); RED BLOOD COUNT 3.09 X10^6/uL (4.7-6.0); RED CELL DISTRIBUTION WIDTH 15.9 % (11.6-16.5)
[2022-08-30 05:48] LABS: ALANINE AMINOTRANSFERASE 16 Units/L (12-78); ALBUMIN 2.2 g/dL (3.4-5.0); ALKALINE PHOSPHATASE 108 Units/L (46-116); ASPARTATE AMINO TRANSFERASE 35 Units/L (15-37); BLOOD UREA NITROGEN 12 mg/dL (7-18); CALCIUM 7.7 mg/dL (8.5-10.1); CARBON DIOXIDE 24.5 mmol/L (21-32); CHLORIDE 106 mmol/L (98-107); COR CA(FOR HYPOALB) 9.1 mg/dL (8.5-10.1); COR NA(FOR HYPERGLY) 143 mmol/L (136-145); GLUCOSE 207 mg/dL (65-99); MAGNESIUM 1.6 mg/dL (2.0-2.9); SODIUM 140 mmol/L (136-145); TOTAL PROTEIN 6.2 g/dL (6.4-8.2); eGFR NON BLACK RACES > 60 (>60)
[2022-08-30] MEDS: TYLENOL 500 MG TAB EXTRA STRENGTH PO PRN ×2 (06:21→21:25)
[2022-08-30] MEDS ORDERED: CONSULT PHARMACY - POTASSIUM & MAGNESIUM XX SCH (07:00)
--- NOTE | 2022-08-30 07:38 | NOTE.SOAP ---
Soap Note Note for Day of Date of Exam: 08/29/22 Subjective Data Subjective Data: Patient seen bedside this am, feeling better with no constitutional symptoms or pain Objective Data Objective Data: Fibrogranular wound bed noted to bilateral heel wounds. Appears stable with no drainage or maggots in the wound this am NVS intact. Able to move toes. Assessment Assessment: Sepsis Maggot infestation with cellulitis, Right lower extremity (treated) s/p Bilateral wound debridement with application of external fixator to RLE Plan Plan: Patient seen at bedside, discussed plan at length. Due lack of compliance there is risk of limb loss. Wound and pin sites were cleansed and packed with betadine soaked gauze. Discussed with the patient once again recommendations of going to a rehab facility when discharge. Patient was amenable but would like to think about it. Due to the instability of the frame, currently, patient is to be NWB to the RLE. We will be taking the patient to the operating room on monday for a revision of the the external fixator frame with anything else deemed medically necessary. Please keep patient NPO after midnight on Thursday 08/31
[2022-08-30] MEDS ORDERED: NovoLIN R (or HumuLIN R) SC PRN (08:26)
[2022-08-30] MEDS ORDERED: PROTONIX TAB 40 MG PO ONE (08:43)
[2022-08-30] MEDS ORDERED: ZESTRIL TAB 10 MG ONE (08:43)
[2022-08-30] MEDS ORDERED: LYRICA CAP 50 mg PO ONE (08:43)
[2022-08-30] MEDS ORDERED: ZESTRIL TAB 40 MG ONE (08:48)
[2022-08-30] MEDS: ACTOS PO SCH (09:12)
[2022-08-30] MEDS: PROTONIX TAB 40 MG PO SCH (09:13)
[2022-08-30] MEDS: LOPRESSOR TAB 25 MG PO SCH ×2 (09:13→20:21)
[2022-08-30] MEDS: ZESTRIL TAB 10 MG PO SCH (09:15)
[2022-08-30] MEDS: MAG-OX TAB PO SCH ×2 (09:15→10:47)
[2022-08-30] MEDS: VSL#3 PO SCH (09:17)
[2022-08-30] MEDS: ROCEPHIN VIAL 1 GRAM 1 G in NS 100 ML IV 100 ML IV SCH (09:17)
[2022-08-30] MEDS: DAKINS SOLUTION HALF STRENGTH 0.25% EXT SCH (09:18)
[2022-08-30] MEDS: LIPITOR TAB 80 MG PO SCH (09:20)
[2022-08-30] MEDS ORDERED: NS 1,000 ML IV 1,000 ML with MAGNESIUM SULFATE 50% INJ VIAL 2 G IV SCH ×2 (10:00)
[2022-08-30] MEDS: NS 1,000 ML IV 1,000 ML with MAGNESIUM SULFATE 50% INJ VIAL 2 G IV SCH ×6 (11:04→21:06)
[2022-08-30] MEDS: MILK OF MAGNESIA PO SCH (20:20)
[2022-08-30] MEDS: COLACE CAP 100 MG PO SCH (20:21)
[2022-08-30] MEDS ORDERED: PHARMACY COMMENT IV SCH (20:45)
[2022-08-30 21:15] LABS: CREATININE 0.93 mg/dL (0.70-1.30); VANCOMYCIN,TROUGH 3.8 ug/mL (15-20)
[2022-08-30] MEDS: VALIUM INJ IVP PRN (21:25)
[2022-08-30] MEDS: TOUJEO SOLOSTAR PEN SC SCH (21:35)
[2022-08-30] MEDS: VANCOMYCIN IV *PREMIX 1 G/200 ML BAG 1 G/200 ML PIGGYBACK IV SCH ×3 (21:43→21:51)
[2022-08-31] MEDS: NS 1,000 ML IV 1,000 ML with MAGNESIUM SULFATE 50% INJ VIAL 2 G IV SCH ×6 (04:26→19:00)
[2022-08-31 05:37] LABS: BASOPHILS # (AUTO) 0.1 X10^3/uL (0.0-0.1); BASOPHILS % (AUTO) 0.7 % (0.2-1.0); EOSINOPHILS # (AUTO) 0.4 x10^3/uL (0.0-0.2); EOSINOPHILS % (AUTO) 4.1 % (0.9-2.9); HEMATOCRIT 28.6 % (42.0-54.0); HEMOGLOBIN 9.7 g/dL (13.5-18.0); LYMPHOCYTES # (AUTO) 1.7 X10^3/uL (1.3-2.9); MEAN CORPUSCULAR HEMOGLOBIN 31.7 pg (27.0-34.0); MEAN CORPUSCULAR HGB CONC 33.9 g/dL (33.0-35.0); MEAN CORPUSCULAR VOLUME 93.5 fL (80.0-100.0); MONOCYTES # (AUTO) 1.3 x10^3/uL (0.3-0.8); MONOCYTES % (AUTO) 15.5 % (0.0-13.0); NEUTROPHILS # (AUTO) 5.2 x10^3/uL (2.2-4.8); NEUTROPHILS % (AUTO) 59.7 % (42.0-75.0); PLATELET COUNT 282 X10^3/uL (150.0-450.0); RED BLOOD COUNT 3.05 X10^6/uL (4.7-6.0); RED CELL DISTRIBUTION WIDTH 15.4 % (11.6-16.5); WHITE BLOOD COUNT 8.6 X10^3/uL (3.6-10.0)
[2022-08-31 05:50] LABS: ALANINE AMINOTRANSFERASE 16 Units/L (12-78); ALBUMIN 2.1 g/dL (3.4-5.0); ALKALINE PHOSPHATASE 107 Units/L (46-116); ASPARTATE AMINO TRANSFERASE 25 Units/L (15-37); BLOOD UREA NITROGEN 9 mg/dL (7-18); CARBON DIOXIDE 24.6 mmol/L (21-32); CHLORIDE 106 mmol/L (98-107); COR CA(FOR HYPOALB) 9.5 mg/dL (8.5-10.1); COR NA(FOR HYPERGLY) 141 mmol/L (136-145); CREATININE 0.83 mg/dL (0.70-1.30); GLUCOSE 181 mg/dL (65-99); POTASSIUM 3.8 mmol/L (3.5-5.1); SODIUM 139 mmol/L (136-145); TOTAL PROTEIN 6.2 g/dL (6.4-8.2); eGFR NON BLACK RACES > 60 (>60)
[2022-08-31] MEDS ORDERED: CONSULT PHARMACY - POTASSIUM & MAGNESIUM XX SCH (07:00)
[2022-08-31] MEDS: DAKINS SOLUTION HALF STRENGTH 0.25% EXT SCH (08:12)
[2022-08-31] MEDS: ACTOS PO SCH ×2 (08:12→14:42)
[2022-08-31] MEDS: LIPITOR TAB 80 MG PO SCH (08:12)
[2022-08-31] MEDS: LOPRESSOR TAB 25 MG PO SCH ×2 (08:13→22:08)
[2022-08-31] MEDS: PROTONIX TAB 40 MG PO SCH (08:14)
[2022-08-31] MEDS: ROCEPHIN VIAL 1 GRAM 1 G in NS 100 ML IV 100 ML IV SCH (08:14)
[2022-08-31] MEDS: VSL#3 PO SCH ×2 (08:14→14:43)
[2022-08-31] MEDS: ZESTRIL TAB 10 MG PO SCH (08:15)
[2022-08-31] MEDS ORDERED: K-DUR TAB 20 MEQ PO SCH (09:00)
[2022-08-31] MEDS: CHLORTHALIDONE PO SCH ×2 (09:13→14:43)
[2022-08-31] MEDS: GLUCOPHAGE XR 24-HR PO SCH ×3 (09:13→22:08)
[2022-08-31] MEDS ORDERED: VALIUM INJ IVP PRN (09:15)
[2022-08-31] MEDS: VANCOMYCIN IV *PREMIX 1 G/200 ML BAG 1 G/200 ML PIGGYBACK IV SCH ×2 (09:59→22:09)
[2022-08-31] MEDS ORDERED: MARCAINE 0.25% INJ ONE (11:36)
[2022-08-31] MEDS ORDERED: BETADINE SOLN ONE (11:36)
[2022-08-31] MEDS ORDERED: NORCO 7.5/325 MG TAB PO ONE (12:08)
[2022-08-31] MEDS ORDERED: ANCEF VIAL 1 GRAM ONE (12:44)
[2022-08-31] MEDS ORDERED: NS 100 ML IV 100 ML ONE (12:45)
[2022-08-31] MEDS ORDERED: NS 1,000 ML IV 1,000 ML ONE (12:45)
[2022-08-31] MEDS ORDERED: VERSED ONE (13:02)
[2022-08-31] MEDS ORDERED: FENTANYL VIAL INJ 100 mcg ONE (13:12)
[2022-08-31] MEDS ORDERED: DIPRIVAN VIAL 20 ML ONE (13:12)
[2022-08-31] MEDS ORDERED: NS IRRIGATION* 500 ML IR ONE (14:42)
[2022-08-31 15:01] VITALS: O2SAT 96
[2022-08-31] MEDS: NovoLIN R (or HumuLIN R) SUBCUT PRN (16:54)
[2022-08-31] MEDS: MILK OF MAGNESIA PO SCH (22:00)
[2022-08-31] MEDS: COLACE CAP 100 MG PO SCH (22:07)
[2022-08-31] MEDS: TOUJEO SOLOSTAR PEN SC SCH (22:08)
[2022-08-31] MEDS ORDERED: NICOTINE PATCH TD SCH (23:45)
[2022-09-01] MEDS: NS 1,000 ML IV 1,000 ML with MAGNESIUM SULFATE 50% INJ VIAL 2 G IV SCH ×2 (03:04)
[2022-09-01 04:27] VITALS: RESP 20
[2022-09-01 05:49] LABS: BASOPHILS % (AUTO) 0.4 % (0.2-1.0); EOSINOPHILS # (AUTO) 0.3 x10^3/uL (0.0-0.2); EOSINOPHILS % (AUTO) 2.6 % (0.9-2.9); HEMATOCRIT 28.7 % (42.0-54.0); HEMOGLOBIN 9.8 g/dL (13.5-18.0); LYMPHOCYTES # (AUTO) 1.8 X10^3/uL (1.3-2.9); LYMPHOCYTES % (AUTO) 16.7 % (21.0-51.0); MEAN CORPUSCULAR HEMOGLOBIN 31.9 pg (27.0-34.0); MEAN CORPUSCULAR HGB CONC 34.2 g/dL (33.0-35.0); MEAN CORPUSCULAR VOLUME 93.2 fL (80.0-100.0); MEAN PLATELET VOLUME 7.8 fL (7.4-11.0); MONOCYTES # (AUTO) 2.1 x10^3/uL (0.3-0.8); MONOCYTES % (AUTO) 18.7 % (0.0-13.0); NEUTROPHILS # (AUTO) 6.8 x10^3/uL (2.2-4.8); NEUTROPHILS % (AUTO) 61.6 % (42.0-75.0); PLATELET COUNT 301 X10^3/uL (150.0-450.0); RED BLOOD COUNT 3.08 X10^6/uL (4.7-6.0); RED CELL DISTRIBUTION WIDTH 15.5 % (11.6-16.5)
[2022-09-01 06:02] LABS: ALANINE AMINOTRANSFERASE 10 Units/L (12-78); ALBUMIN 2.1 g/dL (3.4-5.0); ALKALINE PHOSPHATASE 99 Units/L (46-116); ASPARTATE AMINO TRANSFERASE 17 Units/L (15-37); BLOOD UREA NITROGEN 9 mg/dL (7-18); CALCIUM 7.9 mg/dL (8.5-10.1); CARBON DIOXIDE 26.6 mmol/L (21-32); CHLORIDE 104 mmol/L (98-107); COR CA(FOR HYPOALB) 9.4 mg/dL (8.5-10.1); COR NA(FOR HYPERGLY) 139 mmol/L (136-145); CREATININE 0.83 mg/dL (0.70-1.30); GLUCOSE 127 mg/dL (65-99); POTASSIUM 3.8 mmol/L (3.5-5.1); SODIUM 138 mmol/L (136-145); TOTAL PROTEIN 6.1 g/dL (6.4-8.2); eGFR NON BLACK RACES > 60 (>60)
[2022-09-01] MEDS ORDERED: CONSULT PHARMACY - POTASSIUM & MAGNESIUM XX SCH (07:00)
--- NOTE | 2022-09-01 07:35 | NOTE.SOAP ---
Soap Note Note for Day of Date of Exam: 08/29/22 Subjective Data Subjective Data: Patient seen bedside this am, post op removal of Ex fix and debridement of bilateral wounds. Patient is well with no constitutional symptoms or pain Objective Data Objective Data: Deferred, post op dressings c/d/i without strike through Assessment Assessment: S/p removal of right ex fix with debridement of bilateral heel wounds (DOS: 09/01/22) Non healing ulcers, bilateral heels Maggot infestation with cellulitis, Right lower extremity (treated) s/p Bilateral wound debridement with application of external fixator to RLE Plan Plan: Patient seen at bedside. Patient is to go home becasue he will not be accepted into a rehab facility. Patient okay for discharge but will need home health orders with dressing changes every other day: remove bilateral dressings (do not throw out splints), cleanse wounds with saline and gauze, apply adaptic to bilateral wounds, apply gauze over the adaptic, apply kerlex to both feet, reapply offloading splints followed by OSITO wraps. Educated patient on the importance of offloading his heels and limiting activity. Patient is to follow up in Dr. Malone office for routine care.
[2022-09-01] MEDS ORDERED: PHARMACY COMMENT IV ONE (08:30)
[2022-09-01] MEDS: PROTONIX TAB 40 MG PO SCH (08:31)
[2022-09-01] MEDS: ROCEPHIN VIAL 1 GRAM 1 G in NS 100 ML IV 100 ML IV SCH (08:31)
[2022-09-01] MEDS: GLUCOPHAGE XR 24-HR PO SCH (08:32)
[2022-09-01] MEDS: VSL#3 PO SCH (08:32)
[2022-09-01] MEDS: ACTOS PO SCH (08:33)
[2022-09-01] MEDS: LOPRESSOR TAB 25 MG PO SCH (08:33)
[2022-09-01] MEDS: CHLORTHALIDONE PO SCH (08:33)
[2022-09-01] MEDS: DAKINS SOLUTION HALF STRENGTH 0.25% EXT SCH (08:34)
[2022-09-01] MEDS: LIPITOR TAB 80 MG PO SCH (08:34)
[2022-09-01] MEDS: ZESTRIL TAB 10 MG PO SCH (08:36)
[2022-09-01] MEDS ORDERED: K-DUR TAB 20 MEQ PO SCH (09:00)
[2022-09-01] MEDS ORDERED: MAG-OX TAB PO SCH (09:00)
[2022-09-01 09:18] VITALS: BP 142/66; PULSE 82; TEMP 98.3
== END 2022-09-01 12:05 | disposition home health service (06) | DRG 574 ==
LOC: ER 19:51 → MED/SURG 23:42 → ICU 08-28 03:50 → MED/SURG 08-31 16:18
PROVIDERS: ADMIT Obstetrics & Gynecology Obstetrics; ATTEND Obstetrics & Gynecology Obstetrics
DX: L97.428 Non-pressure chronic ulcer of left heel and midfoot with other specified severity; E11.65 Type 2 diabetes mellitus with hyperglycemia; B96.89 Other specified bacterial agents as the cause of diseases classified elsewhere; F17.210 Nicotine dependence, cigarettes, uncomplicated; I10 Essential (primary) hypertension; B87.1 Wound myiasis; S91.301D Unspecified open wound, right foot, subsequent encounter; R60.0 Localized edema; F10.20 Alcohol dependence, uncomplicated; E11.621 Type 2 diabetes mellitus with foot ulcer; S91.302D Unspecified open wound, left foot, subsequent encounter; Z59.86 Financial insecurity; X58.XXXD Exposure to other specified factors, subsequent encounter; Z91.190 Patient's noncompliance with other medical treatment and regimen due to financial hardship; L03.115 Cellulitis of right lower limb; R26.89 Other abnormalities of gait and mobility; Z91.199 Patient's noncompliance with other medical treatment and regimen due to unspecified reason; L03.116 Cellulitis of left lower limb; K21.9 Gastro-esophageal reflux disease without esophagitis; Z73.89 Other problems related to life management difficulty; R06.02 Shortness of breath